=== PATIENT | male | born 1940 | race Caucasian/White ===

== ENCOUNTER 2016-12-01 14:23 | Emergency (ER) | payer MEDICARE, OTHER ==
[2016-12-01] MEDS ORDERED: Rabies Vaccine (RabAvert)* 2.5 UNITS VIAL ONE (14:48)
[2016-12-01 15:04] VITALS: BP 105/80
--- NOTE | 2016-12-01 16:14 | UC ---
Progress - Progress Note Progress Note: The patient came in for a rabies vaccine. He suffered a racoon bite yesterday. His case was discussed with the health department and he was approved for this vaccine. He was not approved for immune globulin. From the start of his coming in, he was very impatient in terms of waiting for his care. To speed up his care, the order was put in for the vaccine, and what he wanted to do after the shot was not stay for a full evaluation for possible antibiotics. He left before I could see him, but after his vaccine.
== END 2016-12-01 15:31 | disposition left against medical advice (07) ==
LOC: UCEAST 14:23
DX: Z29.14 Encounter for prophylactic rabies immune globulin (principal); Z53.21 Procedure and treatment not carried out due to patient leaving prior to being seen by health care provider
CPT/HCPCS: 90675; 96372

== ENCOUNTER 2017-04-27 02:06 | Inpatient (IN) | payer MEDICARE, OTHER ==
[2017-04-27] MEDS ORDERED: NS 0.9% 1000 ML* 1,000 ML IV ONE (02:32)
[2017-04-27] MEDS ORDERED: Ondansetron INJ* 2 MG/ML VIAL IV ONE (02:32)
[2017-04-27 03:03] LABS: Hematocrit 45 % (42-52); Mean Corpuscular HGB Conc 33 g/dl (31-36); Mean Corpuscular Hemoglobin 32 pg (27-31); Mean Corpuscular Volume 96 fL (80-94); Mean Platelet Volume 8 um3 (7.4-10.4); Red Cell Distribution Width 15 % (10.5-15); White Blood Count 16.3 10^3/ul (3.5-10.8)
--- NOTE | 2017-04-27 03:14 | ED ---
Dwayne Willis Rebecca, scribed for Bill Claire MD on 04/27/17 at 0231 . Abdominal Pain/Male - HPI Summary HPI Summary: Pt is a 77 y/o M BIBA who presents to ED c/o epigastric pain. Sx began gradually at approximately 1930 last night and has been constant since onset. Pain was severe at onset, though currently mild ranked 4/10. Additionally c/o N/ V. Sx aggravated by nothing, alleviated by vomiting. Reports he had a tv dinner that did not taste will. Last seen by PCP 10 days ago. - History of Current Complaint Chief Complaint: EDAbdPain Stated Complaint: EPIGASTRIC PAIN Time Seen by Provider: 04/27/17 02:25 Hx Obtained From: Patient Onset/Duration: Gradual Onset, Lasting Hours, Still Present Timing: Constant Severity Initially: Severe Severity Currently: Mild Pain Intensity: 4 Pain Scale Used: 0-10 Numeric Location: Epigastric Radiates: No Aggravating Factor(s): Nothing Alleviating Factor(s): Vomiting Associated Signs And Symptoms: Positive: Nausea, Vomiting - Allergies/Home Medications Allergies/Adverse Reactions: Allergies Allergy/AdvReac Type Severity Reaction Status Date / Time No Known Allergies Allergy Verified 04/27/17 02:19 Home Medications: Home Medications Sulfamethox/Trimethoprim DS* [Bactrim DS 800/160 TAB*] 1 tab PO DAILY 04/27/17 [ History Confirmed 04/27/17] PMH/Surg Hx/FS Hx/Imm Hx Respiratory History: Reports: Hx Chronic Obstructive Pulmonary Disease (COPD) Musculoskeletal History: Reports: Hx Arthritis Neurological History: Reports: Other Neuro Impairments/Disorders - TIAs - Cancer History Cancer Type, Location and Year: colon CA x 25 yrs ago - Surgical History Surgery Procedure, Year, and Place: R inguinal hernia x 2 partial resection of colon. T&A Infectious Disease History: No Infectious Disease History: Denies: Traveled Outside the [place] in Last 30 Days - Family History Known Family History: Positive: Other - No FHx esophageal malignancy - Social History Alcohol Use: Weekly Alcohol Amount: one glass every 10 days Substance Use Type: Reports: None Hx Tobacco Use: Yes Smoking Status (MU): Current Every Day Smoker Type: Cigarettes Length of Time of Smoking/Using Tobacco: 2 PPD Have You Smoked in the Last Year: Yes Review of Systems Negative: Fever Positive: Abdominal Pain - epigastric, Vomiting, Nausea All Other Systems Reviewed And Are Negative: Yes Physical Exam Triage Information Reviewed: Yes Vital Signs On Initial Exam: Initial Vitals BP 134/75 04/27/17 02:13 Vital Signs Reviewed: Yes Appearance: Positive: Pain Distress - mild discomfort, Thin Skin: Positive: Warm Head/Face: Positive: Normal Head/Face Inspection Eyes: Positive: ENEDELIA ENT: Positive: Hearing grossly normal Neck: Positive: Supple Respiratory/Lung Sounds: Positive: Clear to Auscultation, Breath Sounds Present Cardiovascular: Positive: RRR Abdomen Description: Positive: Nontender, Soft, Distended. Negative: Guarding Bowel Sounds: Positive: Hypoactive Musculoskeletal: Positive: Strength/ROM Intact Neurological: Positive: Alert, Oriented to Person Place, Time - [place] Coma Scale Coma Scale Total: 15 Diagnostics - Vital Signs Vital Signs Temp Pulse Resp BP Pulse Ox 04/27/17 02:15 84 11 100 04/27/17 02:14 98.0 F 85 18 134/75 100 04/27/17 02:13 134/75 - Laboratory Lab Results: Lab Results 04/27/17 Range/Units 02:50 WBC 16.3 H (3.5-10.8) 10^3/ul RBC 4.70 (4.0-5.4) 10^6/ul Hgb 15.0 (14.0-18.0) g/dl Hct 45 (42-52) % MCV 96 H (80-94) fL MCH 32 H (27-31) pg MCHC 33 (31-36) g/dl RDW 15 (10.5-15) % Plt Count 282 (150-450) 10^3/ul MPV 8 (7.4-10.4) um3 Neut % (Auto) 90.2 H (38-83) % Lymph % (Auto) 6.1 L (25-47) % [place] % (Auto) 3.1 (1-9) % Eos % (Auto) 0.3 (0-6) % Baso % (Auto) 0.3 (0-2) % Absolute Neuts (auto) 14.7 H (1.5-7.7) 10^3/ul Absolute Lymphs (auto) 1.0 (1.0-4.8) 10^3/ul Absolute Monos (auto) 0.5 (0-0.8) 10^3/ul Absolute Eos (auto) 0 (0-0.6) 10^3/ul Absolute Basos (auto) 0.1 (0-0.2) 10^3/ul Absolute Nucleated RBC 0.01 10^3/ul Nucleated RBC % 0.1 Result Diagrams: 04/27/17 02:50 04/27/17 02:50 Lab Statement: Any lab studies that have been ordered have been reviewed, and results considered in the medical decision making process. Re-Evaluation - Re-Evaluation First Eval Change: Improved - results d/w pt, d/w dr dc Abdominal Pain Fem Course/Dx - Course Assessment/Plan: Pt is a 77 y/o M BIBA who presents to ED c/o constant epigastric pain since 1930 last night. Pain was severe at onset, though currently mild ranked 4/10. Additionally c/o N/V. Sx alleviated by vomiting. Reports he had a tv dinner that did not taste will. Last seen by PCP 10 days ago. WBC of 16.3. Pt will be signed out to Dr. Bashir, pending dispo, awaiting CT Abd/Pel. - Diagnoses Provider Diagnoses: SBO (small bowel obstruction) Discharge - Discharge Plan Condition: Fair Disposition: ADMITTED TO [facility] Discharge Disposition Comment: Pt will be signed out to Dr. Bashir, pending dispo , awaiting CT Abd/Pel. Referrals: Radha Menard MD [Primary Care Provider] - The documentation as recorded by the Dwayne kaye Rebecca accurately reflects the service I personally performed and the decisions made by me, Bill Claire MD.
[2017-04-27 03:18] LABS: Albumin 4.3 g/dL (3.2-5.2); BUN/Creatinine Ratio 8.6 (8-20); Calcium 9.2 mg/dL (8.6-10.3); EGFR African American 58.2 (>60); EGFR Non-African American 45.3 (>60); Globulin 2.8 g/dL (2-4); Magnesium 2.4 mg/dL (1.9-2.7); Potassium 4.5 mmol/L (3.5-5.0); Total Bilirubin 0.7 mg/dL (0.2-1.0); Total Protein 7.1 g/dL (6.4-8.9)
[2017-04-27] MEDS ORDERED: Lidocaine 2% VISCOUS* 15 ML UDC PO ONE (03:21)
[2017-04-27] MEDS ORDERED: Al Hydrox/Mg Hydrox/Simet LIQ* 30 ML UDC PO ONE (03:21)
[2017-04-27] MEDS ORDERED: Iodixanol* (CONTRAST) 320 MG/ML 100 ML SDV IV ONE (06:06)
--- NOTE | 2017-04-27 07:59 | RAD ---
INDICATION: Abdominal pain. COMPARISON: Comparison is made with a prior CT angiogram of the abdomen from June 24, 2013. TECHNIQUE: A CT scan of the abdomen and pelvis was performed with intravenous and oral contrast following intravenous injection of 72 ml of Visipaque 320 nonionic contrast. Contiguous axial sections were obtained from the lung bases through the symphysis pubis. Images were reconstructed in the coronal and sagittal planes. FINDINGS: The lung bases are clear. No pleural effusion is present. The liver and spleen are normal in size. There is a tiny fluid density structure present within the left hepatic lobe measuring 3 mm in size suggestive of a small cyst although too small to characterize by CT. No other focal abnormalities are seen. No calcified gallstones are noted. No intra or extrahepatic ductal distention is seen. There are a few scattered pancreatic calcifications suggestive of chronic pancreatitis. No ductal distention is seen. There is a tiny cystic lesion in the tail of the pancreas measuring 5 mm in size which is unchanged from the prior study from 2012. The kidneys and adrenal glands are normal in size. No hydronephrosis is seen. There are couple small subcentimeter left renal cysts. The prostate gland is mildly enlarged. The aorta is normal in caliber with moderate calcific plaque present. No significant enlarged retroperitoneal lymph nodes are seen. The stomach is mildly distended. There is moderate diffuse distention of the small bowel. A localized transition point is not identified. Air is seen within the colon which is nondistended. The appendix is not identified. There is a surgical anastomosis at the rectosigmoid junction. No abscess or focal fluid collection is seen. No free intraperitoneal air or fluid is seen. No significant focal osseous abnormality is seen. IMPRESSION: 1. MODERATE GRADE DISTAL SMALL BOWEL OBSTRUCTION. RECOMMEND FOLLOW-UP. 2. FINDINGS CONSISTENT WITH CHRONIC PANCREATITIS.
[2017-04-27] MEDS ORDERED: Ondansetron INJ* 2 MG/ML VIAL IV PRN (08:04)
[2017-04-27] MEDS: NS 0.9% 1000 ML* 1,000 ML IV SCH ×2 (09:13→20:04)
[2017-04-27] MEDS: Pantoprazole IV* 40 MG IV SCH (09:16)
[2017-04-27] MEDS: cefTRIAXone VIAL(*) 1,000 MG in NS 0.9% 50 ML* 50 ML IVPB SCH (09:17)
[2017-04-27] MEDS: Nicotine PATCH 21 MG/24 HR* PATCH TRANSDERM SCH (09:19)
[2017-04-27] MEDS: metroNIDAZOLE IV 500 MG/100ML* 500 MG/100 ML BAG IVPB SCH ×2 (10:36→17:23)
[2017-04-27 11:53] LABS: Urine Bacteria Absent (Absent); Urine Bilirubin Negative (Negative); Urine Glucose Negative (Negative); Urine Nitrite Negative (Negative)
[2017-04-27] MEDS: Heparin VIAL(*) 5000 UNITS/ML VIAL (FIVE THOUSAND) SUBCUT SCH ×2 (13:28→21:54)
[2017-04-27] MEDS ORDERED: Lidocaine 2% VISCOUS* 15 ML UDC SWISH SPIT ONE (15:55)
[2017-04-27] MEDS ORDERED: Benzocaine/Butamben/Tetracain* SPRAY TOPICAL PRN (18:34)
--- NOTE | 2017-04-27 19:11 | HP ---
CC: Dr. Ayon; Dr. Menard; Dr. Connors * HISTORY AND PHYSICAL: DATE OF ADMISSION: 04/27/17 CHIEF COMPLAINT: Abdominal pain. HISTORY OF PRESENT ILLNESS: Mr. Cortez is a 77-year-old male with history of BPH; colon cancer, status post resection in the past, who presents to the hospital complaining of nausea, vomiting, and abdominal pain that started yesterday. The patient stated that he had been constipated for 3 to 4 days. Yesterday, he had "TV dinner." He stated that it did not taste good as the food was "bad." He said that he had most of it. In the night, he developed severe abdominal pain with nausea and vomiting. He stated that he had "more pain and vomiting." He has not had passed any flatus for the past 24 hours. The evaluation in the ED revealed leukocytosis and a CT of the abdomen did show small bowel obstruction, most likely due to adhesions. The patient is going to be admitted to the surgical floor with the diagnosis of small bowel obstruction. Surgery consultants will be managing the obstruction. PAST MEDICAL HISTORY: 1. History of colon cancer, status post resection over 30 years ago. 2. History of PTSD. 3. Arthritis. 4. History of hernia repair x2. 5. History of BPH, under the care of Dr. Connors with recent diagnosis of UTI/ prostatitis. MEDICATIONS: Bactrim DS 1 tablet p.o. b.i.d. started 2 days ago for UTI/ prostatitis by Dr. Connors. ALLERGIES: No known drug allergies. FAMILY HISTORY: Positive for mother who of "throat cancer" at the age of 84 and father who at the age of 82 secondary to pancreatic cancer. SOCIAL HISTORY: The patient has a history of smoking 2 packs per day and he started when he was 23 years old. He denies any alcohol or drug use. 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 His surrogate decision maker is his friend, Clark Smith. REVIEW OF SYSTEMS: Please see history of present illness. All the remaining 14 systems were reviewed with the patient and were otherwise negative. PHYSICAL EXAMINATION GENERAL: The patient is a very pleasant 77-year-old male, who is in no acute distress. Alert, awake, and oriented x3. VITAL SIGNS: Blood pressure 125/70, heart rate of 76 and regular, respiratory rate 14, oxygen saturation 98% on room air, temperature 98.0. HEENT: Head: Atraumatic, normocephalic. Eyes: Pupils equal, round, and reactive to light and accommodation. Oropharynx clear. Mucosa moist. NECK: Supple. No JVD, no bruits bilaterally. RESPIRATORY: Clear to auscultation bilaterally. CARDIOVASCULAR: Regular rate and rhythm. No murmur. ABDOMEN: Soft, diffusely tender with voluntary guarding. No rebound. Bowel sounds are hypoactive throughout. EXTREMITIES: There is no edema. Pulses +2 bilaterally. There is no clubbing or cyanosis. NEUROLOGIC: Speech clear. Cranial nerves II through XII grossly intact. Motor strength is 5/5 bilaterally. PSYCHIATRIC: Oriented x3 with no evidence of anxiety or depression. SKIN: On evaluation of the skin, no ecchymotic areas or rashes noted. DIAGNOSTIC STUDIES/LAB DATA: Shows a white blood cell count of 16.3, hemoglobin of 15.0, hematocrit of 45, and platelets of 282. Sodium was 133, potassium 4.5, chloride 104, carbon dioxide 23, BUN 13, creatinine 1.51. Liver function tests were unremarkable. Lipase was 19. CT abdomen, pelvis, and impression: "Moderate grade distal small bowel obstruction. Recommend followup. Findings consistent with "chronic pancreatitis." ASSESSMENT AND PLAN: 1. Small bowel obstruction in a patient with history of colon cancer most, likely due to adhesions. The patient is going to be placed on n.p.o. diet, intravenous fluids for support. The patient is going to be placed on Protonix intravenous for GI prophylaxis while n.p.o. Dr. Ayon was notified by the ED doctor and requested Medicine to admit this patient. Dr. Ayon will follow this patient in consultation. For the time being, the patient appears comfortable and is not currently vomiting. I will defer to Surgery if the patient needs an NG tube at this point. 2. In regards to the patient's recent history urinary tract infection and prostatitis, Bactrim is going to be held. I will place the patient on ceftriaxone. There are no urine cultures that are available to refer to at this point. I will obtain urinalysis. Due to leukocytosis and the patient's bowel obstruction, I will also place him on metronidazole intravenously in addition to ceftriaxone to cover anaerobes. 3. For DVT prophylaxis, the patient is going to be placed on heparin subcutaneously. 4. In regards to the patient's history of smoking, the patient is aware and counseled in regards to smoking cessation. He is going to be placed on nicotine patch. 5. The patient's code status is full. TIME SPENT: Approximately 70 minutes was spent on admission of this patient, more than half the time was spent [id number] with the patient doing the interview and physical exam. [id number]/[facility] #: [id number] PADDY
--- NOTE | 2017-04-27 22:39 | CONS ---
CC: Radha Menard MD* CONSULTATION REPORT: DATE OF CONSULT: 04/27/17 REASON FOR CONSULTATION: Small bowel obstruction. HISTORY OF PRESENT ILLNESS: This is a 77-year-old gentleman with history of prior right hemicolectomy for colon cancer in 1992, who presented to the [facility] Emergency Room with a history of abdominal pain, which began at 7 :30 on 04/26/17, and subsequently he has had episodes of nausea and small amounts of emesis. He reports his symptoms began after he ate a TV dinner with meatloaf that he felt did not taste particularly good. He did not finish the meal; however, shortly after he started with his symptoms. Prior to that he reports he was seen by his urologist for followup of elevated PSA, and had been found to have an incidental urinary tract infection. That was on Saturday and he had been prescribed Bactrim for that. He reports that he has not had any similar episodes of abdominal pain in the past. He has had a colonoscopy within in the past 1 year, which was negative for any cancer or masses. He has not passed flatus for 2 days. He denies fevers or chills. PAST MEDICAL HISTORY: Significant for colon cancer, COPD, PTSD, hiatal hernia, and arthritis. PAST SURGICAL HISTORY: Right colectomy in 1992 and right inguinal hernia repairs, 1961 and 2010. MEDICATIONS: He was only taking Bactrim at home. ALLERGIES: None known. FAMILY HISTORY: Reviewed and was noncontributory. SOCIAL HISTORY: He is an active smoker and reports occasional alcohol use and no drug use. REVIEW OF SYSTEMS: A 14-point review of systems was completed and was significant for the above-mentioned issues, otherwise negative. PHYSICAL EXAMINATION: Vital Signs: Temperature is 98.6, pulse 84, respirations 16, O2 sat 100% on room air, blood pressure 136/82. General: He is, in general, a thin 77-year-old gentleman, in no acute distress. HEENT: Head is normocephalic and atraumatic. Sclerae are anicteric. Mucous membranes are moist. There is otorhinorrhea. His dentition is poor. His neck is symmetrical, with midline trachea. No palpable lymphadenopathy. Lungs are clear to auscultation bilaterally. Heart: Regular S1, S2. Abdomen has a well -healed transverse scar on the right upper quadrant, is distended, with bowel sounds present with high- pitched bowel sounds, and some rushes. His abdomen is nontender and there were no palpable masses or hernias. His extremities are warm. LABORATORY DATA: Shows a WBC of 16.3, his hemoglobin and hematocrit were 15 and 45, and platelet count was 282, with no shift. Chemistries were remarkable for creatinine of 1.51 and a glucose of 152. Liver functions were normal. Albumin was normal as was lipase. His urinalysis revealed 2+ rbc's, absent wbc' s. No bacteria. His CT scan images from 04/27/17 were reviewed and findings were consistent with small bowel obstructions. IMPRESSION: A 77-year-old gentleman with history of prior right colon cancer, status post resection many years ago, now presenting with first episode of small bowel obstruction likely secondary to adhesions from prior surgery. He does not have an acute abdomen, does not require any urgent surgical intervention. PLAN/RECOMMENDATION: I discussed the findings with the patient. I explained nonsurgical management would include NG-tube decompression, IV hydration, and serial radiographic evaluation. The patient was explained that should his condition worsen or not improve, he may then subsequently require surgical intervention. [facility] will follow with you. [id number]/[facility] #: [id number] PADDY
[2017-04-28] MEDS: metroNIDAZOLE IV 500 MG/100ML* 500 MG/100 ML BAG IVPB SCH ×3 (01:36→17:16)
[2017-04-28] MEDS: NS 0.9% 1000 ML* 1,000 ML IV SCH ×2 (05:06→15:40)
[2017-04-28] MEDS: Heparin VIAL(*) 5000 UNITS/ML VIAL (FIVE THOUSAND) SUBCUT SCH ×3 (06:31→22:10)
[2017-04-28 06:36] LABS: Hematocrit 38 % (42-52); Hemoglobin 12.7 g/dl (14.0-18.0); Mean Corpuscular HGB Conc 33 g/dl (31-36); Mean Corpuscular Hemoglobin 32 pg (27-31); Mean Corpuscular Volume 96 fL (80-94); Mean Platelet Volume 9 um3 (7.4-10.4); Red Blood Count 3.97 10^6/ul (4.0-5.4); Red Cell Distribution Width 14 % (10.5-15); White Blood Count 12.4 10^3/ul (3.5-10.8)
[2017-04-28 06:48] LABS: BUN/Creatinine Ratio 16.5 (8-20); Calcium 7.7 mg/dL (8.6-10.3); EGFR African American 90.5 (>60); EGFR Non-African American 70.4 (>60); Potassium 4.2 mmol/L (3.5-5.0)
--- NOTE | 2017-04-28 08:02 | PN ---
Subjective Date of Service: 04/28/17 Interval History: Patient seen this morning. Says he is feeling significantly better. No N/V overnight. Had "muddy" BM this morning. Asking for NG tube to be removed. Family History: Unchanged from Admission Social History: Unchanged from Admission Past Medical History: Unchanged from Admission Objective Active Medications: Benzocaine/Butamben/Tetracaine HCl (Cetacaine [place]*) 1 spray TOPICAL Q2H PRN Heparin Sodium (Porcine) (Heparin Vial(*)) 5,000 units SUBCUT Q8HR ANTHONY Sodium Chloride (Ns 0.9% 1000 Ml*) 1,000 mls @ 125 mls/hr IV PER RATE ANTHONY Ceftriaxone Sodium 1,000 mg/ (Sodium Chloride) 50 mls @ 200 mls/hr IVPB Q24H ANTHONY Metronidazole/Sodium Chloride (Flagyl 500 Mg Ivpb*) 500 mg in 100 mls @ 100 mls /hr IVPB Q8H ANTHONY Nicotine (Nicotine Patch 21 Mg/24 Hr*) 1 patch TRANSDERM DAILY ANTHONY Ondansetron HCl (Zofran Inj*) 4 mg IV Q6H PRN Pantoprazole Sodium (Protonix Iv*) 40 mg IV DAILY ANTHONY Vital Signs 04/27/17 04/27/17 04/27/17 08:00 08:32 08:54 Temperature 98.1 F Pulse Rate 76 87 Respiratory 18 20 Rate Blood Pressure 136/77 (mmHg) O2 Sat by Pulse 98 99 Oximetry 04/27/17 04/27/17 04/28/17 20:00 23:24 03:31 Temperature 99.5 F 99.2 F Pulse Rate 80 72 Respiratory 16 16 16 Rate Blood Pressure 114/62 108/61 (mmHg) O2 Sat by Pulse 98 98 Oximetry Oxygen Devices in Use Now: None Appearance: Elderly, M, laying in bed in NAD Eyes: No Scleral Icterus Ears/Nose/Mouth/Throat: - - Dry MM Neck: NL Appearance and Movements; NL JVP Respiratory: Symmetrical Chest Expansion and Respiratory Effort, Clear to Auscultation Cardiovascular: NL Sounds; No Murmurs; No JVD, RRR Abdominal: - - Soft, non-distended, mild TTP in LLQ, BS+, do not appreciate tinkling sounds Lymphatic: No Cervical Adenopathy Extremities: No Edema Skin: No Rash or Ulcers Neurological: Alert and Oriented x 3 Lines/Tubes/Other Access: Clean, Dry and Intact Naso-enteral Tube Result Diagrams: 04/28/17 06:03 04/28/17 06:03 Assess/Plan/Problems-Billing Assessment: SBO in a 77 yo M with hx of colon ca s/p resection, BPH, recent UTI - Patient Problems (1) SBO (small bowel obstruction) Current Visit: Yes Comment: Appreciate surgery assistance. Continue NPO, NGT. Repeat AXR this AM pending read. Patient reports having BM this morning. (2) XOCHILT (acute kidney injury) Current Visit: Yes Comment: 2/2 pre-renal vs bactrim. Resolved. (3) UTI (urinary tract infection) Current Visit: Yes Comment: Continue IV CTX for UTI (4) DVT prophylaxis Current Visit: Yes Comment: HSQ Status and Disposition: Inpatient for SBO
--- NOTE | 2017-04-28 08:19 | RAD ---
INDICATION: Small bowel obstruction. COMPARISON: Comparison is made with a prior CT of the abdomen and pelvis from April 27, 2017. TECHNIQUE: Supine and upright views of the abdomen were obtained. FINDINGS: The distal portion of a nasogastric tube is seen in the left upper quadrant. There is moderate distention of several proximal and mid small bowel loops. Air is seen within the colon which is nondistended. No free intraperitoneal air is seen. Contrast is noted in the urinary bladder from the CT study from one day earlier. IMPRESSION: PARTIAL SMALL BOWEL OBSTRUCTION, UNCHANGED.
[2017-04-28] MEDS: Pantoprazole IV* 40 MG IV SCH (09:15)
[2017-04-28] MEDS: cefTRIAXone VIAL(*) 1,000 MG in NS 0.9% 50 ML* 50 ML IVPB SCH (09:15)
[2017-04-28] MEDS: Nicotine PATCH 21 MG/24 HR* PATCH TRANSDERM SCH (09:18)
--- NOTE | 2017-04-28 14:13 | PN ---
Progress Note - Progress Note Date of Service: 04/28/17 SOAP: Subjective: NGT was placed yesterday. He self d/c'd today. He has had multiple BMs and some flatus. He states the pain is gone and he is thirsty. Objective: Vital Signs Temp 98.0 F 04/28/17 08:03 Pulse 64 04/28/17 08:03 Resp 18 04/28/17 08:03 BP 110/62 04/28/17 08:03 Pulse Ox 99 04/28/17 08:03 NAD Abd: softly distended; +BS; mild tympany; non-tender. Intake & Output 04/27/17 04/28/17 04/28/17 18:59 06:59 18:59 Intake Total 821 1366 1006 Output Total 150 650 0 Balance 202 755 8563 Weight 128 lb Intake: IV Fluids 821 1256 NS (0.9%) 606 1256 flagyl 160 zofran 55 IVPB 110 1006 NS (0.9%) 856 flagyl 110 100 zofran 50 Oral 0 0 Output: NG Tube Drainage Amount 400 Urine 100 250 0 Emesis 50 Other: Estimated Void Small # Bowel Movements 1 0 Estimated Stool Amount Small # Voids 1 Laboratory Results - last 24 hr 04/28/17 04/28/17 06:03 06:03 WBC 12.4 H RBC 3.97 L Hgb 12.7 L Hct 38 L MCV 96 H MCH 32 H MCHC 33 RDW 14 Plt Count 252 MPV 9 Neut % (Auto) 80.6 Lymph % (Auto) 10.8 L [place]ess % (Auto) 7.7 Eos % (Auto) 0.7 Baso % (Auto) 0.2 Absolute Neuts (auto) 10.0 H Absolute Lymphs (auto) 1.3 Absolute Monos (auto) 0.9 H Absolute Eos (auto) 0.1 Absolute Basos (auto) 0 Absolute Nucleated RBC 0.01 Nucleated RBC % 0.1 Sodium 137 Potassium 4.2 Chloride 111 Carbon Dioxide 23 Anion Gap 3 BUN 17 Creatinine 1.03 Est GFR ( Amer) 90.5 Est GFR (Non-Af Amer) 70.4 BUN/Creatinine Ratio 16.5 Glucose 101 H Calcium 7.7 L AXR: Air in colon. Dilated SB loops. Assessment: Resolving SBO. Plan: Clears today. Advance in AM if tolerating and could likely d/c tomorrow.
[2017-04-29] MEDS: NS 0.9% 1000 ML* 1,000 ML IV SCH (01:40)
[2017-04-29] MEDS: metroNIDAZOLE IV 500 MG/100ML* 500 MG/100 ML BAG IVPB SCH ×2 (01:41→09:40)
[2017-04-29] MEDS: Heparin VIAL(*) 5000 UNITS/ML VIAL (FIVE THOUSAND) SUBCUT SCH ×2 (06:03→15:12)
[2017-04-29 06:23] LABS: Hematocrit 39 % (42-52); Hemoglobin 12.8 g/dl (14.0-18.0); Mean Corpuscular HGB Conc 33 g/dl (31-36); Mean Corpuscular Hemoglobin 32 pg (27-31); Mean Corpuscular Volume 97 fL (80-94); Mean Platelet Volume 8 um3 (7.4-10.4); Red Cell Distribution Width 15 % (10.5-15); White Blood Count 8.8 10^3/ul (3.5-10.8)
[2017-04-29 06:37] LABS: BUN/Creatinine Ratio 11.9 (8-20); Calcium 7.6 mg/dL (8.6-10.3); EGFR African American 92.6 (>60); Potassium 3.9 mmol/L (3.5-5.0)
--- NOTE | 2017-04-29 07:37 | PN ---
Subjective Date of Service: 04/29/17 Interval History: Patient seen this morning. Says he is tolerating the clear liquids with no problems. He has been having diarrhea and at times it has been difficult to get to the toilet on time and he has had "an accident". Noted corn in his stool which was the last meal he had. Occasional "gas pain" but nothing like before, no further N/V Family History: Unchanged from Admission Social History: Unchanged from Admission Past Medical History: Unchanged from Admission Objective Active Medications: Benzocaine/Butamben/Tetracaine HCl (Cetacaine [place]*) 1 spray TOPICAL Q2H PRN PRN Reason: SORE THROAT Last Admin: 04/27/17 18:46 Dose: 1 spray Heparin Sodium (Porcine) (Heparin Vial(*)) 5,000 units SUBCUT Q8HR [facility] Last Admin: 04/29/17 06:03 Dose: 5,000 units Ceftriaxone Sodium 1,000 mg/ (Sodium Chloride) 50 mls @ 200 mls/hr IVPB Q24H [facility] Last Admin: 04/28/17 09:15 Dose: 200 mls/hr Metronidazole/Sodium Chloride (Flagyl 500 Mg Ivpb*) 500 mg in 100 mls @ 100 mls /hr IVPB Q8H [facility] Last Admin: 04/29/17 01:41 Dose: 100 mls/hr Nicotine (Nicotine Patch 21 Mg/24 Hr*) 1 patch TRANSDERM DAILY [facility] Last Admin: 04/28/17 09:18 Dose: Not Given Ondansetron HCl (Zofran Inj*) 4 mg IV Q6H PRN PRN Reason: NAUSEA Last Admin: 04/27/17 13:26 Dose: 4 mg Pantoprazole Sodium (Protonix Iv*) 40 mg IV DAILY [facility] Last Admin: 04/28/17 09:15 Dose: 40 mg Vital Signs 04/28/17 04/28/17 04/28/17 08:00 08:03 11:47 Temperature 98.0 F 98.2 F Pulse Rate 64 69 Respiratory 18 18 18 Rate Blood Pressure 110/62 95/61 (mmHg) O2 Sat by Pulse 99 99 Oximetry 04/28/17 04/28/17 04/28/17 15:42 19:45 20:11 Temperature 100.8 F 99.3 F Pulse Rate 78 67 Respiratory 18 24 20 Rate Blood Pressure 118/63 109/59 (mmHg) O2 Sat by Pulse 100 98 Oximetry 04/28/17 04/28/17 04/29/17 20:14 23:17 03:19 Temperature 98.3 F 98.1 F Pulse Rate 71 59 Respiratory 20 16 16 Rate Blood Pressure 109/78 112/63 (mmHg) O2 Sat by Pulse 99 99 Oximetry Oxygen Devices in Use Now: None Appearance: Elderly, M, laying in bed in NAD Eyes: No Scleral Icterus Ears/Nose/Mouth/Throat: Mucous Membranes Moist Neck: NL Appearance and Movements; NL JVP Respiratory: Symmetrical Chest Expansion and Respiratory Effort, Clear to Auscultation Cardiovascular: NL Sounds; No Murmurs; No JVD, RRR Abdominal: - - Soft, non-distended, some mild TTP in RLQ, BS+ Lymphatic: No Cervical Adenopathy Extremities: No Edema Skin: No Rash or Ulcers Neurological: Alert and Oriented x 3 Result Diagrams: 04/29/17 05:45 04/29/17 05:45 Assess/Plan/Problems-Billing Assessment: SBO in a 77 yo M with hx of colon ca s/p resection, BPH, recent UTI - Patient Problems (1) SBO (small bowel obstruction) Current Visit: Yes Comment: Appreciate surgery assistance. No further N/V, has been having diarrhea. Advance to full liquids this morning. (2) XOCHILT (acute kidney injury) Current Visit: Yes Comment: 2/2 pre-renal vs bactrim. Resolved. (3) UTI (urinary tract infection) Current Visit: Yes Comment: Continue IV CTX for UTI (4) DVT prophylaxis Current Visit: Yes Comment: HSQ Status and Disposition: Inpatient for SBO, potential discharge later today
[2017-04-29] MEDS: Nicotine PATCH 21 MG/24 HR* PATCH TRANSDERM SCH (08:43)
[2017-04-29] MEDS: Pantoprazole IV* 40 MG IV SCH (08:43)
[2017-04-29] MEDS: cefTRIAXone VIAL(*) 1,000 MG in NS 0.9% 50 ML* 50 ML IVPB SCH (08:45)
--- NOTE | 2017-04-29 10:24 | SURGPN ---
Subjective - Introduction -: Doing very well, eating ice cream. Denies nausea, vomiting or abdominal pain. Tolerating full liquids. Multiple loose BMs yesterday and this AM. Has no complaints. - Medications -: Active Medications Generic Name Dose Route Start Last Admin Trade Name Freq PRN Reason Stop Dose Admin Benzocaine/Butamben/Tetracaine HCl 1 spray 04/27/17 18:34 04/27/17 18:46 Cetacaine [place]* TOPICAL 1 spray Q2H PRN Administration SORE THROAT Heparin Sodium (Porcine) 5,000 units 04/27/17 14:00 04/29/17 06:03 Heparin Vial(*) SUBCUT 5,000 units Q8HR [facility] Administration Ceftriaxone Sodium 1,000 mg/ 50 mls @ 200 mls/hr 04/27/17 09:00 04/29/17 08: 45 Sodium Chloride IVPB 200 mls/hr Q24H AN[facility]Y Administration Metronidazole/Sodium Chloride 500 mg in 100 mls @ 100 mls/hr 04/27/17 09:30 04/29/17 09:40 Flagyl 500 Mg Ivpb* IVPB 100 mls/hr Q8H ANTHONY Administration Nicotine 1 patch 04/27/17 09:00 04/29/17 08:43 Nicotine Patch 21 Mg/24 Hr* TRANSDERM Not Given DAILY ANTHONY Ondansetron HCl 4 mg 04/27/17 08:04 04/27/17 13:26 Zofran Inj* IV 4 mg Q6H PRN Administration NAUSEA Pantoprazole Sodium 40 mg 04/27/17 09:00 04/29/17 08:43 Protonix Iv* IV 40 mg DAILY ANTHONY Administration Objective - Objective -: Awake and alert, comfortable in bed, in NAD. - Intake and Output -: Intake & Output 04/27/17 04/28/17 04/29/17 04/30/17 06:59 06:59 06:59 06:59 Intake Total 2187 3355 320 Output Total 800 200 Balance 1387 3155 320 Weight 128 lb Intake: IV Fluids 2077 749 NS (0.9%) 1862 749 flagyl 160 zofran 55 IVPB 110 1886 NS (0.9%) 1636 flagyl 110 200 zofran 50 Oral 0 720 320 Output: NG Tube Drainage Amount 400 Urine 350 200 Emesis 50 Other: Estimated Void Small Large Date of Last Bowel 04/29/17 Movement # Bowel Movements 1 1 Estimated Stool Amount Small Medium # Voids 1 5 Surgical Physical Exam - Comments -: VSS, afebrile Lungs CTA bilat. Heart RRR, no murmurs. Abdomen soft, NT and ND. BS normoactive in all quadrants. Ext. without edema Labs noted Assessment and Plan - Assessment -: A 77 y/o male with resolved SBO, doing well. - Plan Additional Comments: Full liquid diet for now. Advised to slowly and gradually advance diet to regular as tolerated in the next few days at home. Patient can follow up with surgical associates in 2 weeks after discharge. No surgical indications at this time. Sign off patient. Thank you for the consultation.
[2017-04-29 11:36] VITALS: BP 99/55
--- NOTE | 2017-04-30 03:09 | DS ---
CC: Dr. Radha Menard * DISCHARGE SUMMARY: DATE OF ADMISSION: 04/27/17 DATE OF DISCHARGE: 04/29/17 PRIMARY CARE PHYSICIAN: Dr. Radha Menard. PRINCIPAL DISCHARGE DIAGNOSIS: Small bowel obstruction. SECONDARY DIAGNOSES: 1. Urinary tract infection. 2. History of colon cancer, status post resection. 3. Post traumatic stress disorder. 4. Arthritis. 5. Benign prostatic hypertrophy. STUDIES DURING HOSPITALIZATION: CT of the abdomen and pelvis, impression: Moderate grade distal small bowel obstruction, recommend followup. Findings consistent with chronic pancreatitis. Abdominal x-ray, impression: Partial small bowel obstruction, unchanged. DISCHARGE MEDICATIONS REGIME: Bactrim double strength 1 tablet by mouth 3 times daily. CONSULTANTS DURING HOSPITALIZATION: Dr. Rl Bhatia, Surgery. HISTORY OF PRESENT ILLNESS AND HOSPITAL SUMMARY: Please see the full history and physical by Dr. Kalyn Meade for full details. Mr. Cortez is a 77- year-old male with a past medical history as above, who presented to the hospital with abdominal pain, nausea, and vomiting. Imaging revealed evidence of bowel obstruction most likely due to adhesions from his previous surgery. The patient had an NG tube placed and was made n.p.o. Surgery was consulted. Dr. Bhatia evaluated the patient and agreed with conservative management at this time. Over the following days, patient's NG tube was removed. His symptoms improved. He tolerated clear liquids and was advanced to full liquids on the day of discharge. He was seen by Surgery and was felt safe to discharge home with continued slow advancement of the diet as an outpatient. The patient was diagnosed with a urinary tract infection as an outpatient. While hospitalized, was continued on IV ceftriaxone, Flagyl was added due to concern for possible intraabdominal infection, but there is no need to continue this. The patient can restart his home Bactrim to complete the course for his urinary tract infection minus the 2 days he was in the hospital. The patient will follow up with Surgery as an outpatient as well as with his PCP. TIME SPENT: Total time spent on this discharge 45 minutes. This is a summary of the hospitalization, please see the full medical record for further details. [id number]/CPS #: [id number] MTDD
== END 2017-04-29 16:35 | disposition home or self-care (01) | DRG 389 ==
LOC: ED 02:06 → SSU 07:48
PROVIDERS: ADMIT Internal Medicine; ATTEND Hospitalist
PROC: 0D9670Z Drainage of Stomach with Drainage Device, Via Natural or Artificial Opening (ICD-10-PCS; principal; 2017-04-27)
DX: K56.5 Intestinal adhesions [bands] with obstruction (postinfection) (principal); N17.9 Acute kidney failure, unspecified; J44.9 Chronic obstructive pulmonary disease, unspecified; N39.0 Urinary tract infection, site not specified; K86.1 Other chronic pancreatitis; M19.90 Unspecified osteoarthritis, unspecified site; Z86.73 Personal history of transient ischemic attack (TIA), and cerebral infarction without residual deficits; Z85.038 Personal history of other malignant neoplasm of large intestine; N40.0 Benign prostatic hyperplasia without lower urinary tract symptoms; F43.10 Post-traumatic stress disorder, unspecified; Z80.8 Family history of malignant neoplasm of other organs or systems; Z80.0 Family history of malignant neoplasm of digestive organs; F17.210 Nicotine dependence, cigarettes, uncomplicated; Z90.49 Acquired absence of other specified parts of digestive tract; Z72.89 Other problems related to lifestyle
CPT/HCPCS: 36415; 74020; 74177; 80048; 80053; 81003; 81015; 83690; 83735; 85025; A9270-GY; J0696; J1644; J2405; Q9967

== ENCOUNTER 2022-10-20 22:19 | Observation (INO) ==
[2022-10-20 23:01] LABS: ABS Eosinophils 0.1 10^3/ul (0-0.6); ABS Lymphocytes 1.1 10^3/ul (1.0-4.8); ABS Neutrophils 7.7 10^3/ul (1.5-7.7); Hematocrit 28 % (42-52); Hemoglobin 9.5 g/dL (14.0-18.0); Lymphocyte % 10.8 %; Mean Corpuscular HGB Conc 34 g/dL (31-36); Mean Corpuscular Hemoglobin 34 pg (27-31); Mean Corpuscular Volume 100 fL (80-94); Mean Platelet Volume 7.3 fL (7.4-10.4); Nucleated Red Blood Cells % 0.1; Platelet Count 502 10^3/uL (150-450); Red Blood Count 2.79 10^6 /uL (4.18-5.48); Red Cell Distribution Width 13 % (10-15); White Blood Count 9.9 10^3/uL (3.5-10.8)
[2022-10-20 23:11] LABS: INR 1.22 (0.88-1.18)
[2022-10-20 23:38] LABS: Albumin 4.2 g/dL (3.2-5.2); Albumin/Globulin Ratio 1.9 (1-3); Calcium 9.1 mg/dL (8.6-10.3); Globulin 2.2 g/dL (2-4); Magnesium 2.3 mg/dL (1.9-2.7); Phosphorus 2.4 mg/dL (2.5-5.0); Potassium 4.7 mmol/L (3.5-5.0); Total Bilirubin 0.5 mg/dL (0.2-1.0); Total Protein 6.4 g/dL (6.4-8.9); eGFR CKD-EPI 54.5 (>60)
[2022-10-21 00:51] LABS: High Sensitivity Troponin 1 Hr 6 pg/mL (<20)
[2022-10-21 01:33] LABS: Urine Appearance Clear; Urine Bilirubin Negative (Negative); Urine Blood Negative (Negative); Urine Color Yellow; Urine Glucose Negative (Negative); Urine Ketones Trace (Negative); Urine Nitrite Negative (Negative); Urine Protein Negative (Negative); Urine Specific Gravity 1.019 (1.002-1.030); Urine Urobilinogen Negative (Negative)
[2022-10-21] MEDS ORDERED: Ondansetron 4 mg VIAL 2 MG/ML 2 ml VIAL IV PRN (02:15)
[2022-10-21 03:01] LABS: Folate 13.75 ng/mL (5.90-24.80)
[2022-10-21] MEDS: Lactated Ringers 1000 ml BAG 1,000 ML IV SCH ×2 (04:46→17:55)
[2022-10-21 06:46] LABS: ABS Basophils 0.1 10^3/ul (0-0.2); ABS Eosinophils 0.1 10^3/ul (0-0.6); ABS Lymphocytes 1.1 10^3/ul (1.0-4.8); ABS Monocytes 1.1 10^3/ul (0-0.8); ABS Neutrophils 7.7 10^3/ul (1.5-7.7); Eosinophil % 0.9 %; Hematocrit 27 % (42-52); Hemoglobin 9.4 g/dL (14.0-18.0); Lymphocyte % 10.9 %; Mean Corpuscular HGB Conc 35 g/dL (31-36); Mean Corpuscular Hemoglobin 35 pg (27-31); Mean Corpuscular Volume 100 fL (80-94); Mean Platelet Volume 7.5 fL (7.4-10.4); Platelet Count 482 10^3/uL (150-450); Red Blood Count 2.72 10^6 /uL (4.18-5.48); Red Cell Distribution Width 13 % (10-15)
[2022-10-21 07:35] LABS: Albumin/Globulin Ratio 1.8 (1-3); Globulin 2.2 g/dL (2-4); Potassium 4.3 mmol/L (3.5-5.0); Total Bilirubin 0.7 mg/dL (0.2-1.0); Total Protein 6.2 g/dL (6.4-8.9); eGFR CKD-EPI 71.8 (>60)
[2022-10-21] MEDS: CMC:FLUTICAS/UMECLI/VILANT 100-62.5-25 MDI (NF) INH SCH (07:48)
[2022-10-21] MEDS ORDERED: Magnesium Hydroxide LIQ 30 ML UDC PO PRN (08:49)
[2022-10-21] MEDS ORDERED: Polyethylene Glycol 3350 17 GM PACKET PO PRN (08:49)
[2022-10-21] MEDS ORDERED: Senna TAB 8.6 mg TAB PO PRN (08:49)
[2022-10-21] MEDS: Magnesium Hydroxide LIQ 30 ML UDC PO SCH ×2 (13:35→22:19)
[2022-10-21] MEDS: Enoxaparin 40 MG/0.4 ML SYR SUBCUT SCH (13:36)
[2022-10-21] MEDS: Lidocaine PATCH 5% PATCH TRANSDERM SCH (21:33)
[2022-10-22] MEDS: Lactated Ringers 1000 ml BAG 1,000 ML IV SCH ×3 (02:14→22:41)
[2022-10-22 06:40] LABS: ABS Basophils 0.1 10^3/ul (0-0.2); ABS Eosinophils 0.1 10^3/ul (0-0.6); ABS Lymphocytes 0.8 10^3/ul (1.0-4.8); ABS Monocytes 0.8 10^3/ul (0-0.8); ABS Neutrophils 4.9 10^3/ul (1.5-7.7); Eosinophil % 1.7 %; Hematocrit 27 % (42-52); Hemoglobin 9.3 g/dL (14.0-18.0); Lymphocyte % 11.9 %; Mean Corpuscular HGB Conc 35 g/dL (31-36); Mean Corpuscular Hemoglobin 35 pg (27-31); Mean Corpuscular Volume 100 fL (80-94); Mean Platelet Volume 7.1 fL (7.4-10.4); Platelet Count 453 10^3/uL (150-450); Red Blood Count 2.67 10^6 /uL (4.18-5.48); Red Cell Distribution Width 13 % (10-15); White Blood Count 6.6 10^3/uL (3.5-10.8)
[2022-10-22 07:16] LABS: Calcium 8.7 mg/dL (8.6-10.3); Potassium 4.4 mmol/L (3.5-5.0); eGFR CKD-EPI 80.9 (>60)
[2022-10-22] MEDS: CMC:FLUTICAS/UMECLI/VILANT 100-62.5-25 MDI (NF) INH SCH (07:37)
[2022-10-22] MEDS: Magnesium Hydroxide LIQ 30 ML UDC PO SCH ×2 (09:01→20:35)
[2022-10-22] MEDS: Lidocaine PATCH 5% PATCH TRANSDERM SCH (09:01)
[2022-10-22] MEDS: Enoxaparin 40 MG/0.4 ML SYR SUBCUT SCH (12:21)
[2022-10-23] MEDS: CMC:FLUTICAS/UMECLI/VILANT 100-62.5-25 MDI (NF) INH SCH (07:48)
[2022-10-23] MEDS: Magnesium Hydroxide LIQ 30 ML UDC PO SCH (08:57)
[2022-10-23] MEDS: Lidocaine PATCH 5% PATCH TRANSDERM SCH (08:57)
[2022-10-23] MEDS: Lactated Ringers 1000 ml BAG 1,000 ML IV SCH (08:58)
[2022-10-23] MEDS: Enoxaparin 40 MG/0.4 ML SYR SUBCUT SCH (12:45)
[2022-10-23 12:52] VITALS: BP 114/61
== END 2022-10-23 14:00 | disposition home or self-care (01) ==
LOC: EDHOLD 22:19 → ED 22:19 → MEDTELE 10-21 02:54
PROVIDERS: ADMIT Internal Medicine; ATTEND Internal Medicine

== ENCOUNTER 2022-10-31 10:37 | Inpatient (IN) ==
[2022-10-31] MEDS ORDERED: NS 0.9% 1000 ml BAG 1,000 ML IV ONE ×2 (10:41→12:10)
[2022-10-31 11:33] LABS: ABS Basophils 0.1 10^3/ul (0-0.2); ABS Monocytes 0.9 10^3/ul (0-0.8); ABS Neutrophils 6.7 10^3/ul (1.5-7.7); Eosinophil % 0.6 %; Hematocrit 28 % (42-52); Hemoglobin 9.4 g/dL (14.0-18.0); Lymphocyte % 11.2 %; Mean Corpuscular HGB Conc 34 g/dL (31-36); Mean Corpuscular Hemoglobin 34 pg (27-31); Mean Corpuscular Volume 99 fL (80-94); Platelet Count 512 10^3/uL (150-450); Red Blood Count 2.79 10^6 /uL (4.18-5.48); Red Cell Distribution Width 14 % (10-15); White Blood Count 8.6 10^3/uL (3.5-10.8)
[2022-10-31 11:39] LABS: INR 1.25 (0.88-1.18)
[2022-10-31 11:57] LABS: High Sens Troponin Baseline 6 pg/mL (<20)
[2022-10-31 12:14] LABS: ALT 14 U/L (7-52); AST 12 U/L (13-39); Albumin 4.3 g/dL (3.2-5.2); Alkaline Phosphatase 141 U/L (35-149); Anion Gap 6 mmol/L (2-11); Blood Urea Nitrogen 22 mg/dL (6-24); C Reactive Protein < 1.00 mg/L (<8.01); CO2 Carbon Dioxide 26 mmol/L (22-32); Calcium 9.2 mg/dL (8.6-10.3); Chloride 104 mmol/L (101-111); Creatinine, Serum 1.32 mg/dL (0.67-1.17); Globulin 2.1 g/dL (2-4); Glucose 88 mg/dL (70-100); Lipase 21 U/L (11.0-82.0); Magnesium 2.4 mg/dL (1.9-2.7); Phosphorus 2.7 mg/dL (2.5-5.0); Potassium 4.6 mmol/L (3.5-5.0); Sodium 136 mmol/L (135-145); Total Protein 6.4 g/dL (6.4-8.9); eGFR CKD-EPI 54.5 (>60)
[2022-10-31 13:06] LABS: High Sensitivity Troponin 1 Hr 6 pg/mL (<20)
[2022-10-31] MEDS ORDERED: Senna TAB 8.6 mg TAB PO PRN (13:42)
[2022-10-31] MEDS ORDERED: Polyethylene Glycol 3350 17 GM PACKET PO PRN (13:42)
[2022-10-31] MEDS ORDERED: Magnesium Hydroxide LIQ 30 ML UDC PO PRN (13:42)
[2022-10-31 15:29] LABS: Ferritin 845.4 ng/mL (24-336)
[2022-10-31 15:45] LABS: % Iron Saturation 23 % (15-55); Iron 62 ug/dL (50-212); Total Iron Binding Capacity 266 mcg/dL (250-450); Transferrin 190 mg/dL (203-362); Unsaturated Iron Binding 204 ug/dL
[2022-10-31] MEDS: Enoxaparin 40 MG/0.4 ML SYR SUBCUT SCH (17:46)
[2022-10-31] MEDS: Polyethylene Glycol 3350 17 GM PACKET PO SCH (17:46)
[2022-10-31] MEDS: FLUTICAS/UMECLI/VILANT 100-62.5-25 MDI (NF) INH SCH (19:05)
[2022-10-31 21:33] LABS: Urine Appearance Clear; Urine Bilirubin Negative (Negative); Urine Blood Negative (Negative); Urine Color Yellow; Urine Glucose 1+(50 mg/dL) (Negative); Urine Ketones Trace (Negative); Urine Nitrite Negative (Negative); Urine Protein Negative (Negative); Urine Specific Gravity 1.019 (1.002-1.030); Urine Urobilinogen Negative (Negative)
[2022-11-01 05:53] LABS: ABS Basophils 0.1 10^3/ul (0-0.2); ABS Eosinophils 0.1 10^3/ul (0-0.6); ABS Lymphocytes 1.2 10^3/ul (1.0-4.8); ABS Monocytes 0.9 10^3/ul (0-0.8); ABS Neutrophils 3.8 10^3/ul (1.5-7.7); Eosinophil % 1.7 %; Hematocrit 25 % (42-52); Hemoglobin 8.6 g/dL (14.0-18.0); Mean Corpuscular HGB Conc 34 g/dL (31-36); Mean Corpuscular Hemoglobin 34 pg (27-31); Mean Corpuscular Volume 99 fL (80-94); Mean Platelet Volume 7.2 fL (7.4-10.4); Nucleated Red Blood Cells % 0.1; Platelet Count 467 10^3/uL (150-450); Red Blood Count 2.56 10^6 /uL (4.18-5.48); Red Cell Distribution Width 14 % (10-15); White Blood Count 6.1 10^3/uL (3.5-10.8)
[2022-11-01 06:18] LABS: Calcium 8.6 mg/dL (8.6-10.3); Creatinine, Serum 1.1 mg/dL (0.67-1.17); Potassium 4.7 mmol/L (3.5-5.0); eGFR CKD-EPI 67.9 (>60)
[2022-11-01] MEDS: FLUTICAS/UMECLI/VILANT 100-62.5-25 MDI (NF) INH SCH ×2 (07:27→18:54)
[2022-11-01] MEDS: Polyethylene Glycol 3350 17 GM PACKET PO SCH (08:46)
[2022-11-01] MEDS: Calcium Polycarbophil 625mg TB PO SCH (08:47)
[2022-11-01] MEDS: Lidocaine PATCH 5% PATCH TRANSDERM SCH (08:47)
[2022-11-01] MEDS: Senna TAB 8.6 mg TAB PO SCH (08:47)
[2022-11-01 09:05] LABS: Folate 12.11 ng/mL (5.90-24.80)
[2022-11-01 10:14] LABS: TSH Ultra Thyroid Stim Horm 0.94 mcIU/mL (0.34-5.60)
[2022-11-01] MEDS: Enoxaparin 40 MG/0.4 ML SYR SUBCUT SCH (15:38)
[2022-11-02] MEDS: FLUTICAS/UMECLI/VILANT 100-62.5-25 MDI (NF) INH SCH ×2 (07:12→17:50)
[2022-11-02] MEDS: Lidocaine PATCH 5% PATCH TRANSDERM SCH (09:11)
[2022-11-02] MEDS: Calcium Polycarbophil 625mg TB PO SCH (09:12)
[2022-11-02] MEDS: Senna TAB 8.6 mg TAB PO SCH (09:12)
[2022-11-02] MEDS: Polyethylene Glycol 3350 17 GM PACKET PO SCH (09:12)
[2022-11-02] MEDS: Enoxaparin 40 MG/0.4 ML SYR SUBCUT SCH (16:55)
[2022-11-03 06:33] LABS: ABS Basophils 0.1 10^3/ul (0-0.2); ABS Eosinophils 0.1 10^3/ul (0-0.6); ABS Lymphocytes 1.2 10^3/ul (1.0-4.8); ABS Monocytes 0.9 10^3/ul (0-0.8); ABS Neutrophils 3.7 10^3/ul (1.5-7.7); Eosinophil % 2.1 %; Hematocrit 27 % (42-52); Hemoglobin 9.3 g/dL (14.0-18.0); Lymphocyte % 20.6 %; Mean Corpuscular HGB Conc 35 g/dL (31-36); Mean Corpuscular Hemoglobin 35 pg (27-31); Mean Corpuscular Volume 101 fL (80-94); Mean Platelet Volume 7.4 fL (7.4-10.4); Platelet Count 430 10^3/uL (150-450); Red Blood Count 2.66 10^6 /uL (4.18-5.48); Red Cell Distribution Width 14 % (10-15)
[2022-11-03 06:49] LABS: Calcium 8.7 mg/dL (8.6-10.3); Creatinine, Serum 1.02 mg/dL (0.67-1.17); Potassium 4.6 mmol/L (3.5-5.0); eGFR CKD-EPI 74.3 (>60)
[2022-11-03] MEDS: FLUTICAS/UMECLI/VILANT 100-62.5-25 MDI (NF) INH SCH ×2 (08:07→19:43)
[2022-11-03] MEDS: Lidocaine PATCH 5% PATCH TRANSDERM SCH (08:23)
[2022-11-03] MEDS: Polyethylene Glycol 3350 17 GM PACKET PO SCH (08:24)
[2022-11-03] MEDS: Senna TAB 8.6 mg TAB PO SCH (08:27)
[2022-11-03] MEDS: Calcium Polycarbophil 625mg TB PO SCH (08:27)
[2022-11-03] MEDS: Enoxaparin 40 MG/0.4 ML SYR SUBCUT SCH (16:00)
[2022-11-04] MEDS: FLUTICAS/UMECLI/VILANT 100-62.5-25 MDI (NF) INH SCH (07:45)
[2022-11-04] MEDS: Calcium Polycarbophil 625mg TB PO SCH (08:56)
[2022-11-04] MEDS: Senna TAB 8.6 mg TAB PO SCH (08:56)
[2022-11-04] MEDS: Lidocaine PATCH 5% PATCH TRANSDERM SCH (08:57)
[2022-11-04] MEDS: Polyethylene Glycol 3350 17 GM PACKET PO SCH (08:57)
[2022-11-04] MEDS: CMCS: FLUTICAS/UMECLI/VILANT 100-62.5-25 MDI (NF) INH SCH (11:31)
[2022-11-04] MEDS: Enoxaparin 40 MG/0.4 ML SYR SUBCUT SCH (16:05)
[2022-11-05] MEDS: CMCS: FLUTICAS/UMECLI/VILANT 100-62.5-25 MDI (NF) INH SCH (07:24)
[2022-11-05] MEDS: Polyethylene Glycol 3350 17 GM PACKET PO SCH (08:21)
[2022-11-05] MEDS: Lidocaine PATCH 5% PATCH TRANSDERM SCH (08:21)
[2022-11-05] MEDS: Senna TAB 8.6 mg TAB PO SCH (08:22)
[2022-11-05] MEDS: Calcium Polycarbophil 625mg TB PO SCH (08:22)
[2022-11-05] MEDS: Enoxaparin 40 MG/0.4 ML SYR SUBCUT SCH (17:26)
[2022-11-06] MEDS: CMCS: FLUTICAS/UMECLI/VILANT 100-62.5-25 MDI (NF) INH SCH (07:49)
[2022-11-06] MEDS: Calcium Polycarbophil 625mg TB PO SCH (09:21)
[2022-11-06] MEDS: Senna TAB 8.6 mg TAB PO SCH (09:22)
[2022-11-06] MEDS: Lidocaine PATCH 5% PATCH TRANSDERM SCH (09:23)
[2022-11-06] MEDS: Polyethylene Glycol 3350 17 GM PACKET PO SCH (09:23)
[2022-11-06 15:04] LABS: Rapid COVID-19 Molecular Undetected (Undetected)
[2022-11-06] MEDS: Enoxaparin 40 MG/0.4 ML SYR SUBCUT SCH (15:55)
[2022-11-07] MEDS: CMCS: FLUTICAS/UMECLI/VILANT 100-62.5-25 MDI (NF) INH SCH (08:06)
[2022-11-07] MEDS: Calcium Polycarbophil 625mg TB PO SCH (08:50)
[2022-11-07] MEDS: Lidocaine PATCH 5% PATCH TRANSDERM SCH (09:16)
[2022-11-07] MEDS: Senna TAB 8.6 mg TAB PO SCH (09:17)
[2022-11-07] MEDS: Polyethylene Glycol 3350 17 GM PACKET PO SCH (09:17)
[2022-11-07 11:12] VITALS: BP 115/66
[2022-11-09 13:01] LABS: Lambda Free Light Chain, S 1.26 mg/dL
[2022-11-12 08:23] LABS: Albumin 3.4 g/dL (3.4-4.7); Albumin/Globulin Ratio 1.23; Gamma Globulin 1.1 g/dL (0.6-1.6); Total Protein(PEP) 6.1 g/dL (6.3 - 7.9)
[2022-11-13 19:33] LABS: Immunoglobulin A 211 mg/dL (61 - 356); Immunoglobulin G 319 mg/dL (767 - 1590); Immunoglobulin M 21 mg/dL (37 - 286)
== END 2022-11-07 15:00 | DRG 551 ==
LOC: ED 10:37 → SUATTDRO 13:42 → EDHOLD 13:42 → MED 16:53
PROVIDERS: ADMIT Physician Assistant; ATTEND Internal Medicine

== ENCOUNTER 2023-08-20 03:19 | Inpatient (IN) ==
[2023-08-20 06:57] LABS: Activated Partial Thrombo Time 32.5 seconds (26.0-38.0); INR 1.2 (0.83-1.13)
[2023-08-20 07:01] LABS: ABS Basophils 0.1 10^3/uL (0.0-0.1); ABS Monocytes 1.3 10^3/uL (0.0-1.1); ABS Neutrophils 15.6 10^3/uL (1.5-7.6); ABS Nucleated RBC 0.01 10^3/ul; Eosinophil % 0.3 %; Hematocrit 30.5 % (38-53); Hemoglobin 10.8 g/dL (13.2-16.3); Lymphocyte % 5.4 %; Mean Corpuscular Hgb Conc 35.3 g/dL (31-36); Mean Corpuscular Volume 104.8 fL (80-97); Mean Platelet Volume 7.4 fL (7.5-11.2); Nucleated Red Blood Cells % 0.1 %/100WBC (0.0-0.8); Platelet Count 441 10^3/uL (150-450); Red Blood Count 2.91 10^6/uL (4.06-5.63); Red Cell Distribution Width 14.4 % (12-17)
[2023-08-20 07:15] LABS: Calcium 8.6 mg/dL (8.6-10.3); Creatinine, Serum 0.98 mg/dL (0.67-1.17); Potassium 3.8 mmol/L (3.5-5.0); eGFR CKD-EPI 77.5 (>60)
[2023-08-20] MEDS ORDERED: Acetaminophen IV 1 GM/100ML 1,000 MG/100 ML BAG IV PRN (10:15)
[2023-08-20] MEDS ORDERED: Morphine 2 MG/ML SYRINGE IV PRN (10:16)
[2023-08-20] MEDS ORDERED: hydrALAZINE 20 mg/ml 1 ML Vial IV IV SLOW PU PRN (10:25)
[2023-08-20] MEDS: NS 0.9% 1000 ml BAG 1,000 ML IV SCH (11:07)
[2023-08-20] MEDS ORDERED: ROPIVACAINE 5 MG/ML 30 ML BTL (0.5%) ONE (16:46)
[2023-08-20] MEDS ORDERED: Rocuronium 50 mg VIAL 10 mg/ml 5 ml VIAL (50 mg) ONE (16:51)
[2023-08-20] MEDS ORDERED: Propofol 10 MG/ML 20 ML BTL ONE (16:51)
[2023-08-20] MEDS ORDERED: Lidocaine 2% PF 5 ML VIAL ONE (16:51)
[2023-08-20] MEDS ORDERED: HYDROmorphone 0.5 MG/0.5 ML SYRINGE ONE (17:44)
[2023-08-20] MEDS ORDERED: ceFAZolin 2 GM in NS PREMIX 2 GM/100 ML BAG IVPB ONE (18:02)
[2023-08-20] MEDS ORDERED: Acetaminophen IV 1 GM/100 ML BAG IV ONE (18:17)
[2023-08-20] MEDS ORDERED: Ondansetron 4 mg VIAL 2 MG/ML 2 ml VIAL ONE (19:08)
[2023-08-20] MEDS ORDERED: Magnesium Hydroxide LIQ 30 ML UDC PO PRN (19:58)
[2023-08-20] MEDS ORDERED: Polyethylene Glycol 3350 17 GM PACKET PO PRN (19:58)
[2023-08-20] MEDS ORDERED: Senna TAB 8.6 mg TAB PO PRN (19:58)
[2023-08-20] MEDS ORDERED: Metoclopramide 5 MG/ML VIAL (10 mg) IV PRN (20:27)
[2023-08-20] MEDS ORDERED: Naloxone 0.4 mg VIAL 0.4 mg/ml 1 ml VIAL IV PRN (20:27)
[2023-08-20] MEDS ORDERED: HYDROcodone/ACETAMIN 5/325 mg TAB PO PRN (20:27)
[2023-08-20] MEDS ORDERED: Ondansetron 4 mg VIAL 2 MG/ML 2 ml VIAL IV PRN (20:27)
[2023-08-20] MEDS ORDERED: oxyCODONE/Acetamin 5/325 mg TAB ONE (20:27)
[2023-08-20] MEDS ORDERED: fentaNYL 100 mcg/2 ml 50 MCG/ML VIAL ONE (20:27)
[2023-08-20] MEDS: fentaNYL 100 mcg/2 ml 50 MCG/ML VIAL IV PRN ×4 (20:32→20:54)
[2023-08-20] MEDS ORDERED: oxyCODONE/Acetamin 5/325 mg TAB PO ONE (20:36)
[2023-08-20] MEDS ORDERED: Magnesium Hydroxide LIQ 30 ML UDC PO SCH (21:00)
[2023-08-21] MEDS: NS 0.9% 1000 ml BAG 1,000 ML IV SCH (00:49)
[2023-08-21] MEDS: ceFAZolin 1 GM ADVAN 1 GM in NS 0.9% 50 ML 50 ML IVPB SCH ×3 (01:52→18:26)
[2023-08-21 06:10] LABS: ABS Lymphocytes 0.5 10^3/uL (1.0-4.8); ABS Monocytes 0.9 10^3/uL (0.0-1.1); ABS Neutrophils 10.7 10^3/uL (1.5-7.6); ABS Nucleated RBC 0.02 10^3/ul; Hematocrit 28.1 % (38-53); Hemoglobin 9.8 g/dL (13.2-16.3); Lymphocyte % 3.8 %; Mean Corpuscular Hemoglobin 36.7 pg (27-33); Mean Corpuscular Hgb Conc 34.9 g/dL (31-36); Mean Platelet Volume 7.6 fL (7.5-11.2); Nucleated Red Blood Cells % 0.2 %/100WBC (0.0-0.8); Platelet Count 441 10^3/uL (150-450); Red Blood Count 2.68 10^6/uL (4.06-5.63); Red Cell Distribution Width 14.7 % (12-17); White Blood Count 12.1 10^3/uL (3.6-10.2)
[2023-08-21 06:21] LABS: Calcium 7.6 mg/dL (8.6-10.3); Creatinine, Serum 1.05 mg/dL (0.67-1.17); Potassium 4.3 mmol/L (3.5-5.0); eGFR CKD-EPI 71.3 (>60)
[2023-08-21] MEDS ORDERED: Morphine 2 MG/ML SYRINGE IV PRN (09:02)
[2023-08-21] MEDS ORDERED: Polyethylene Glycol 3350 17 GM PACKET PO PRN (09:02)
[2023-08-21] MEDS ORDERED: Magnesium Hydroxide LIQ 30 ML UDC PO PRN (09:02)
[2023-08-21] MEDS ORDERED: Senna TAB 8.6 mg TAB PO PRN (09:02)
[2023-08-21] MEDS: Magnesium Hydroxide LIQ 30 ML UDC PO SCH ×2 (09:18→20:05)
[2023-08-21] MEDS ORDERED: Enoxaparin 40 MG/0.4 ML SYR SUBCUT SCH (12:00)
[2023-08-21] MEDS: Tiotropium Brom/Olodaterol MDI (ACUTE) INH SCH (12:20)
[2023-08-22 06:13] LABS: ABS Basophils 0.1 10^3/uL (0.0-0.1); ABS Eosinophils 0.1 10^3/uL (0.0-0.5); ABS Lymphocytes 0.8 10^3/uL (1.0-4.8); ABS Monocytes 1.4 10^3/uL (0.0-1.1); ABS Neutrophils 8.2 10^3/uL (1.5-7.6); Eosinophil % 0.5 %; Hematocrit 24.1 % (38-53); Hemoglobin 8.6 g/dL (13.2-16.3); Lymphocyte % 7.7 %; Mean Corpuscular Hemoglobin 37.8 pg (27-33); Mean Corpuscular Hgb Conc 35.8 g/dL (31-36); Mean Corpuscular Volume 105.6 fL (80-97); Mean Platelet Volume 7.8 fL (7.5-11.2); Platelet Count 338 10^3/uL (150-450); Red Blood Count 2.28 10^6/uL (4.06-5.63); Red Cell Distribution Width 14.7 % (12-17); White Blood Count 10.5 10^3/uL (3.6-10.2)
[2023-08-22 06:31] LABS: Calcium 7.6 mg/dL (8.6-10.3); Creatinine, Serum 1.09 mg/dL (0.67-1.17); Potassium 4.2 mmol/L (3.5-5.0); eGFR CKD-EPI 68.2 (>60)
[2023-08-22 06:32] VITALS: BP 118/62
[2023-08-22] MEDS: Magnesium Hydroxide LIQ 30 ML UDC PO SCH (08:50)
[2023-08-22] MEDS: Tiotropium Brom/Olodaterol MDI (ACUTE) INH SCH (08:52)
== END 2023-08-22 08:39 | DRG 522 ==
LOC: ED 03:19 → EDHOLD 08:33 → SSU 11:14
PROVIDERS: ADMIT Internal Medicine; ATTEND Internal Medicine

== ENCOUNTER 2023-08-22 08:09 | Inpatient (IN) ==
[2023-08-22] MEDS ORDERED: Magnesium Hydroxide LIQ 30 ML UDC PO PRN (08:39)
[2023-08-22] MEDS ORDERED: Senna TAB 8.6 mg TAB PO PRN (08:39)
[2023-08-22] MEDS ORDERED: Al Hydrox/Mg Hydrox/Simet LIQ 30 ML UDC PO PRN (08:39)
[2023-08-22] MEDS: Tiotropium Brom/Olodaterol MDI (ACUTE) INH SCH (10:48)
[2023-08-22] MEDS: Enoxaparin 40 MG/0.4 ML SYR SUBCUT SCH (12:11)
[2023-08-22] MEDS: Carbidopa/Levodop 25/100 MG TAB PO SCH (19:40)
[2023-08-23 06:54] LABS: Albumin 3.3 g/dL (3.2-5.2); Albumin/Globulin Ratio 1.5 (1-3); Calcium 7.4 mg/dL (8.6-10.3); Creatinine, Serum 0.9 mg/dL (0.67-1.17); Globulin 2.2 g/dL (2-4); Potassium 4.1 mmol/L (3.5-5.0); Total Bilirubin 0.6 mg/dL (0.2-1.0); Total Protein 5.5 g/dL (6.4-8.9); eGFR CKD-EPI 85.8 (>60)
[2023-08-23 07:26] LABS: ABS Eosinophils 0.1 10^3/uL (0.0-0.5); ABS Lymphocytes 0.9 10^3/uL (1.0-4.8); ABS Monocytes 1.2 10^3/uL (0.0-1.1); Eosinophil % 1.1 %; Hematocrit 23.5 % (38-53); Hemoglobin 8.3 g/dL (13.2-16.3); Lymphocyte % 9.7 %; Mean Corpuscular Hemoglobin 37.1 pg (27-33); Mean Corpuscular Hgb Conc 35.1 g/dL (31-36); Mean Corpuscular Volume 105.8 fL (80-97); Mean Platelet Volume 7.9 fL (7.5-11.2); Platelet Count 316 10^3/uL (150-450); Red Blood Count 2.23 10^6/uL (4.06-5.63); Red Cell Distribution Width 15.1 % (12-17); White Blood Count 9.3 10^3/uL (3.6-10.2)
[2023-08-23] MEDS ORDERED: Fluticasone NASAL SPRAY 50MCG 16 gm SPRAY BTL BOTH NARES SCH (09:00)
[2023-08-23] MEDS ORDERED: Influenza vaccine *QUAD* *2023-24* 0.5 ML SYRINGE IM ONE (09:00)
[2023-08-23] MEDS: Enoxaparin 40 MG/0.4 ML SYR SUBCUT SCH (09:51)
[2023-08-23] MEDS ORDERED: Fluticasone NASAL SPRAY 50MCG 16 gm SPRAY BTL BOTH NARES PRN (10:00)
[2023-08-23 11:47] LABS: Folate 14.25 ng/mL (5.90-24.80)
[2023-08-23] MEDS ORDERED: DARBEPOETIN ALFA ALBUMEN FREE SUBCUT ONE (12:00)
[2023-08-23] MEDS: Carbidopa/Levodop 25/100 MG TAB PO SCH ×2 (13:01→18:29)
[2023-08-23] MEDS: Tiotropium Brom/Olodaterol MDI (ACUTE) INH SCH (13:05)
[2023-08-23] MEDS ORDERED: Benzocaine/Menthol LOZ MT PRN (17:41)
[2023-08-24] MEDS: Tiotropium Brom/Olodaterol MDI (ACUTE) INH SCH (07:27)
[2023-08-24] MEDS: Enoxaparin 40 MG/0.4 ML SYR SUBCUT SCH (07:29)
[2023-08-24] MEDS: Carbidopa/Levodop 25/100 MG TAB PO SCH ×2 (12:41→18:55)
[2023-08-25] MEDS: Enoxaparin 40 MG/0.4 ML SYR SUBCUT SCH (08:39)
[2023-08-25] MEDS: Tiotropium Brom/Olodaterol MDI (ACUTE) INH SCH (08:40)
[2023-08-25] MEDS: Carbidopa/Levodop 25/100 MG TAB PO SCH ×2 (12:05→18:05)
[2023-08-26] MEDS: Carbidopa/Levodop 25/100 MG TAB PO SCH ×3 (06:04→18:40)
[2023-08-26] MEDS: Enoxaparin 40 MG/0.4 ML SYR SUBCUT SCH (07:07)
[2023-08-26] MEDS: Tiotropium Brom/Olodaterol MDI (ACUTE) INH SCH (07:07)
[2023-08-26 09:15] LABS: Hematocrit 24.4 % (38-53); Hemoglobin 8.6 g/dL (13.2-16.3)
[2023-08-27] MEDS: Carbidopa/Levodop 25/100 MG TAB PO SCH ×3 (06:11→18:47)
[2023-08-27] MEDS: Tiotropium Brom/Olodaterol MDI (ACUTE) INH SCH (07:34)
[2023-08-27] MEDS: Enoxaparin 40 MG/0.4 ML SYR SUBCUT SCH (10:16)
[2023-08-28] MEDS: Carbidopa/Levodop 25/100 MG TAB PO SCH ×3 (06:02→18:22)
[2023-08-28] MEDS: Enoxaparin 40 MG/0.4 ML SYR SUBCUT SCH (09:21)
[2023-08-28] MEDS: Tiotropium Brom/Olodaterol MDI (ACUTE) INH SCH (09:25)
[2023-08-29] MEDS: Carbidopa/Levodop 25/100 MG TAB PO SCH ×3 (06:13→18:50)
[2023-08-29] MEDS: Enoxaparin 40 MG/0.4 ML SYR SUBCUT SCH (08:16)
[2023-08-29] MEDS: Tiotropium Brom/Olodaterol MDI (ACUTE) INH SCH (08:19)
[2023-08-30] MEDS: Carbidopa/Levodop 25/100 MG TAB PO SCH ×3 (06:05→18:20)
[2023-08-30 07:02] LABS: ABS Basophils 0.2 10^3/uL (0.0-0.1); ABS Eosinophils 0.2 10^3/uL (0.0-0.5); ABS Lymphocytes 1.1 10^3/uL (1.0-4.8); ABS Monocytes 0.9 10^3/uL (0.0-1.1); ABS Neutrophils 5.1 10^3/uL (1.5-7.6); ABS Nucleated RBC 0.01 10^3/ul; Eosinophil % 2.7 %; Hematocrit 22.9 % (38-53); Hemoglobin 7.9 g/dL (13.2-16.3); Lymphocyte % 14.8 %; Mean Corpuscular Hemoglobin 35.6 pg (27-33); Mean Corpuscular Hgb Conc 34.2 g/dL (31-36); Mean Corpuscular Volume 104.1 fL (80-97); Mean Platelet Volume 6.8 fL (7.5-11.2); Nucleated Red Blood Cells % 0.1 %/100WBC (0.0-0.8); Platelet Count 626 10^3/uL (150-450); White Blood Count 7.4 10^3/uL (3.6-10.2)
[2023-08-30 07:24] LABS: Albumin 3.1 g/dL (3.2-5.2); Albumin/Globulin Ratio 1.3 (1-3); Calcium 7.7 mg/dL (8.6-10.3); Creatinine, Serum 0.92 mg/dL (0.67-1.17); Globulin 2.4 g/dL (2-4); Potassium 4.2 mmol/L (3.5-5.0); Total Bilirubin 0.5 mg/dL (0.2-1.0); Total Protein 5.5 g/dL (6.4-8.9); eGFR CKD-EPI 83.6 (>60)
[2023-08-30] MEDS: Tiotropium Brom/Olodaterol MDI (ACUTE) INH SCH (09:22)
[2023-08-30] MEDS: Enoxaparin 40 MG/0.4 ML SYR SUBCUT SCH (09:24)
[2023-08-31] MEDS: Carbidopa/Levodop 25/100 MG TAB PO SCH ×3 (04:47→18:16)
[2023-08-31] MEDS: Enoxaparin 40 MG/0.4 ML SYR SUBCUT SCH (09:57)
[2023-08-31] MEDS: Tiotropium Brom/Olodaterol MDI (ACUTE) INH SCH (09:58)
[2023-09-01] MEDS: Carbidopa/Levodop 25/100 MG TAB PO SCH ×3 (05:21→18:30)
[2023-09-01] MEDS: Enoxaparin 40 MG/0.4 ML SYR SUBCUT SCH (07:40)
[2023-09-01] MEDS: Tiotropium Brom/Olodaterol MDI (ACUTE) INH SCH (07:57)
[2023-09-02] MEDS: Carbidopa/Levodop 25/100 MG TAB PO SCH ×3 (05:59→18:13)
[2023-09-02] MEDS: Enoxaparin 40 MG/0.4 ML SYR SUBCUT SCH (08:07)
[2023-09-02] MEDS: Tiotropium Brom/Olodaterol MDI (ACUTE) INH SCH (08:12)
[2023-09-02 08:24] LABS: ABS Basophils 0.1 10^3/uL (0.0-0.1); ABS Eosinophils 0.1 10^3/uL (0.0-0.5); ABS Monocytes 0.6 10^3/uL (0.0-1.1); ABS Neutrophils 4.2 10^3/uL (1.5-7.6); ABS Nucleated RBC 0.01 10^3/ul; Eosinophil % 2.4 %; Hematocrit 23.1 % (38-53); Lymphocyte % 16.7 %; Mean Corpuscular Hemoglobin 35.7 pg (27-33); Mean Corpuscular Hgb Conc 34.4 g/dL (31-36); Mean Corpuscular Volume 103.6 fL (80-97); Mean Platelet Volume 6.6 fL (7.5-11.2); Nucleated Red Blood Cells % 0.1 %/100WBC (0.0-0.8); Platelet Count 665 10^3/uL (150-450); Red Blood Count 2.23 10^6/uL (4.06-5.63); Red Cell Distribution Width 15.4 % (12-17); White Blood Count 6.1 10^3/uL (3.6-10.2)
[2023-09-02 19:11] LABS: Urine Appearance Clear; Urine Bilirubin Negative (Negative); Urine Blood Negative (Negative); Urine Color Yellow; Urine Glucose Negative (Negative); Urine Ketones Negative (Negative); Urine Nitrite Negative (Negative); Urine Protein Negative (Negative); Urine Specific Gravity 1.011 (1.002-1.030); Urine Urobilinogen Negative (Negative)
[2023-09-03] MEDS: Carbidopa/Levodop 25/100 MG TAB PO SCH ×3 (06:45→17:54)
[2023-09-03] MEDS: Enoxaparin 40 MG/0.4 ML SYR SUBCUT SCH (07:41)
[2023-09-03] MEDS: Tiotropium Brom/Olodaterol MDI (ACUTE) INH SCH (07:42)
[2023-09-04] MEDS: Carbidopa/Levodop 25/100 MG TAB PO SCH ×3 (04:04→17:51)
[2023-09-04] MEDS: Tiotropium Brom/Olodaterol MDI (ACUTE) INH SCH (10:26)
[2023-09-04] MEDS: Enoxaparin 40 MG/0.4 ML SYR SUBCUT SCH (10:26)
[2023-09-05] MEDS: Carbidopa/Levodop 25/100 MG TAB PO SCH ×3 (05:57→18:02)
[2023-09-05] MEDS: Tiotropium Brom/Olodaterol MDI (ACUTE) INH SCH (09:41)
[2023-09-05] MEDS: Enoxaparin 40 MG/0.4 ML SYR SUBCUT SCH (09:43)
[2023-09-06] MEDS: Carbidopa/Levodop 25/100 MG TAB PO SCH ×3 (06:02→17:45)
[2023-09-06 06:50] LABS: ABS Basophils 0.1 10^3/uL (0.0-0.1); ABS Eosinophils 0.1 10^3/uL (0.0-0.5); ABS Lymphocytes 0.9 10^3/uL (1.0-4.8); ABS Monocytes 1.3 10^3/uL (0.0-1.1); ABS Neutrophils 8.7 10^3/uL (1.5-7.6); ABS Nucleated RBC 0.01 10^3/ul; Eosinophil % 0.8 %; Hematocrit 22.1 % (38-53); Hemoglobin 7.8 g/dL (13.2-16.3); Lymphocyte % 8.1 %; Mean Corpuscular Hemoglobin 36.1 pg (27-33); Mean Corpuscular Hgb Conc 35.1 g/dL (31-36); Mean Corpuscular Volume 102.7 fL (80-97); Mean Platelet Volume 6.8 fL (7.5-11.2); Nucleated Red Blood Cells % 0.1 %/100WBC (0.0-0.8); Platelet Count 594 10^3/uL (150-450); Red Blood Count 2.15 10^6/uL (4.06-5.63); Red Cell Distribution Width 16.4 % (12-17)
[2023-09-06 07:44] LABS: Albumin 3.2 g/dL (3.2-5.2); Albumin/Globulin Ratio 1.4 (1-3); Calcium 7.8 mg/dL (8.6-10.3); Creatinine, Serum 0.91 mg/dL (0.67-1.17); Globulin 2.3 g/dL (2-4); Potassium 3.9 mmol/L (3.5-5.0); Total Bilirubin 0.6 mg/dL (0.2-1.0); Total Protein 5.5 g/dL (6.4-8.9); eGFR CKD-EPI 84.7 (>60)
[2023-09-06] MEDS: Tiotropium Brom/Olodaterol MDI (ACUTE) INH SCH (09:54)
[2023-09-06] MEDS: Enoxaparin 40 MG/0.4 ML SYR SUBCUT SCH (09:54)
[2023-09-06] MEDS ORDERED: DARBEPOETIN ALFA ALBUMEN FREE SUBCUT ONE (16:21)
[2023-09-07] MEDS: Carbidopa/Levodop 25/100 MG TAB PO SCH ×3 (05:53→17:33)
[2023-09-07 08:40] LABS: ABS Basophils 0.1 10^3/uL (0.0-0.1); ABS Eosinophils 0.1 10^3/uL (0.0-0.5); ABS Lymphocytes 1.2 10^3/uL (1.0-4.8); ABS Monocytes 1.1 10^3/uL (0.0-1.1); ABS Neutrophils 6.7 10^3/uL (1.5-7.6); ABS Nucleated RBC 0.01 10^3/ul; Eosinophil % 1.4 %; Hematocrit 25.8 % (38-53); Lymphocyte % 13.4 %; Mean Corpuscular Hemoglobin 35.5 pg (27-33); Mean Corpuscular Hgb Conc 34.8 g/dL (31-36); Mean Corpuscular Volume 101.9 fL (80-97); Nucleated Red Blood Cells % 0.1 %/100WBC (0.0-0.8); Red Blood Count 2.53 10^6/uL (4.06-5.63); Red Cell Distribution Width 17.8 % (12-17); White Blood Count 9.3 10^3/uL (3.6-10.2)
[2023-09-07] MEDS: Enoxaparin 40 MG/0.4 ML SYR SUBCUT SCH (08:51)
[2023-09-07] MEDS: Tiotropium Brom/Olodaterol MDI (ACUTE) INH SCH (08:53)
[2023-09-07 09:21] LABS: Platelet Count Platelets clumped. 10^3/uL (150-450)
[2023-09-08] MEDS: Carbidopa/Levodop 25/100 MG TAB PO SCH ×3 (04:50→17:33)
[2023-09-08] MEDS: Enoxaparin 40 MG/0.4 ML SYR SUBCUT SCH (08:12)
[2023-09-08] MEDS: Tiotropium Brom/Olodaterol MDI (ACUTE) INH SCH (08:12)
[2023-09-09] MEDS: Carbidopa/Levodop 25/100 MG TAB PO SCH ×3 (04:57→18:02)
[2023-09-09] MEDS: Enoxaparin 40 MG/0.4 ML SYR SUBCUT SCH (10:06)
[2023-09-09] MEDS: Tiotropium Brom/Olodaterol MDI (ACUTE) INH SCH (10:07)
[2023-09-10] MEDS: Carbidopa/Levodop 25/100 MG TAB PO SCH ×3 (05:36→17:59)
[2023-09-10] MEDS: Tiotropium Brom/Olodaterol MDI (ACUTE) INH SCH (10:14)
[2023-09-10] MEDS: Enoxaparin 40 MG/0.4 ML SYR SUBCUT SCH (10:16)
[2023-09-11] MEDS: Carbidopa/Levodop 25/100 MG TAB PO SCH ×3 (05:55→17:20)
[2023-09-11] MEDS: Enoxaparin 40 MG/0.4 ML SYR SUBCUT SCH (08:40)
[2023-09-11] MEDS: Tiotropium Brom/Olodaterol MDI (ACUTE) INH SCH (08:43)
[2023-09-12] MEDS: Carbidopa/Levodop 25/100 MG TAB PO SCH ×3 (05:27→18:15)
[2023-09-12] MEDS: Tiotropium Brom/Olodaterol MDI (ACUTE) INH SCH (09:42)
[2023-09-12] MEDS: Enoxaparin 40 MG/0.4 ML SYR SUBCUT SCH (09:43)
[2023-09-12 19:08] LABS: Rapid COVID-19 Molecular Undetected (Undetected)
[2023-09-13] MEDS: Carbidopa/Levodop 25/100 MG TAB PO SCH (04:24)
[2023-09-13 07:04] LABS: Hematocrit 25.5 % (38-53); Mean Corpuscular Hemoglobin 35.4 pg (27-33); Mean Corpuscular Hgb Conc 35.3 g/dL (31-36); Mean Corpuscular Volume 100.2 fL (80-97); Mean Platelet Volume 6.3 fL (7.5-11.2); Platelet Count 556 10^3/uL (150-450); Red Blood Count 2.54 10^6/uL (4.06-5.63); Red Cell Distribution Width 16.9 % (12-17); White Blood Count 6.8 10^3/uL (3.6-10.2)
[2023-09-13 07:13] LABS: Anion Gap 4 mmol/L (2-16); Blood Urea Nitrogen 10 mg/dL (6-24); CO2 Carbon Dioxide 29 mmol/L (22-32); Calcium 7.8 mg/dL (8.6-10.3); Chloride 107 mmol/L (101-111); Creatinine, Serum 0.84 mg/dL (0.67-1.17); Glucose 97 mg/dL (70-100); Potassium 3.7 mmol/L (3.5-5.0); Sodium 140 mmol/L (135-145); eGFR CKD-EPI 87.6 (>60)
[2023-09-13 07:42] LABS: ALT < 3 U/L (7-52); AST 8 U/L (13-39); Albumin 3.2 g/dL (3.2-5.2); Albumin/Globulin Ratio 1.5 (1-3); Alkaline Phosphatase 140 U/L (35-149); Globulin 2.2 g/dL (2-4); Total Bilirubin 0.4 mg/dL (0.2-1.0); Total Protein 5.4 g/dL (6.4-8.9)
[2023-09-13 08:00] LABS: ABS Basophils 0.1 10^3/uL (0.0-0.1); ABS Eosinophils 0.2 10^3/uL (0.0-0.5); ABS Monocytes 0.8 10^3/uL (0.0-1.1); ABS Neutrophils 4.6 10^3/uL (1.5-7.6); ABS Nucleated RBC 0.01 10^3/ul; Eosinophil % 3.5 %; Lymphocyte % 15.5 %; Nucleated Red Blood Cells % 0.1 %/100WBC (0.0-0.8)
[2023-09-13 08:41] VITALS: BP 144/65
[2023-09-13] MEDS: Enoxaparin 40 MG/0.4 ML SYR SUBCUT SCH (08:50)
[2023-09-13] MEDS: Tiotropium Brom/Olodaterol MDI (ACUTE) INH SCH (08:58)
== END 2023-09-13 11:30 | DRG 560 ==
LOC: PMRU 10:14
PROVIDERS: ADMIT Physical Medicine & Rehabilitation; ATTEND Physical Medicine & Rehabilitation

== ENCOUNTER 2024-03-08 16:24 | Inpatient (IN) ==
[2024-03-08 18:16] LABS: ABS Basophils 0.1 10^3/uL (0.0-0.1); ABS Eosinophils 0.1 10^3/uL (0.0-0.5); ABS Monocytes 0.7 10^3/uL (0.0-1.1); ABS Neutrophils 3.9 10^3/uL (1.5-7.6); ABS Nucleated RBC 0.01 10^3/ul; Eosinophil % 1.4 %; Hemoglobin 10.5 g/dL (13.2-16.3); Lymphocyte % 17.8 %; Mean Corpuscular Hemoglobin 37.2 pg (27-33); Mean Corpuscular Volume 106.2 fL (80-97); Mean Platelet Volume 7.2 fL (7.5-11.2); Nucleated Red Blood Cells % 0.1 %/100WBC (0.0-0.8); Platelet Count 475 10^3/uL (150-450); Red Blood Count 2.83 10^6/uL (4.06-5.63); Red Cell Distribution Width 15.5 % (12-17); White Blood Count 5.8 10^3/uL (3.6-10.2)
[2024-03-08 18:20] LABS: INR 1.16 (0.83-1.13)
[2024-03-08 18:47] LABS: Albumin 4.3 g/dL (3.2-5.2); Calcium 9.4 mg/dL (8.6-10.3); Creatinine, Serum 1.05 mg/dL (0.67-1.17); Globulin 2.2 g/dL (2-4); Potassium 4.9 mmol/L (3.5-5.0); Total Bilirubin 0.5 mg/dL (0.2-1.0); Total Protein 6.5 g/dL (6.4-8.9); eGFR CKD-EPI 70.9 (>60)
[2024-03-08] MEDS ORDERED: Fluticasone NASAL SPRAY 50MCG 16 gm SPRAY BTL INTRANASAL PRN (22:37)
[2024-03-08] MEDS ORDERED: Albuterol HFA INHALER 8 gm MDI INH PRN (22:37)
[2024-03-09] MEDS ORDERED: Morphine 2 MG/ML SYRINGE IV PRN (03:05)
[2024-03-09] MEDS ORDERED: Senna TAB 8.6 mg TAB PO PRN (03:06)
[2024-03-09] MEDS: Carbidopa/Levodop 25/100 MG TAB PO SCH (03:12)
[2024-03-09 03:54] LABS: Folate 12.17 ng/mL (5.90-24.80)
[2024-03-09 04:32] LABS: Ferritin 690.8 ng/mL (24-336)
[2024-03-09] MEDS: Acetaminophen IV 1 GM/100ML 1,000 MG/100 ML BAG IV PRN (06:22)
[2024-03-09 06:35] LABS: ABS Basophils 0.1 10^3/uL (0.0-0.1); ABS Eosinophils 0.1 10^3/uL (0.0-0.5); ABS Lymphocytes 1.1 10^3/uL (1.0-4.8); ABS Monocytes 0.9 10^3/uL (0.0-1.1); ABS Neutrophils 6.3 10^3/uL (1.5-7.6); ABS Nucleated RBC 0.01 10^3/ul; Eosinophil % 1.6 %; Hematocrit 29.8 % (38-53); Hemoglobin 10.3 g/dL (13.2-16.3); Lymphocyte % 13.3 %; Mean Corpuscular Hemoglobin 36.5 pg (27-33); Mean Corpuscular Hgb Conc 34.4 g/dL (31-36); Mean Corpuscular Volume 106.1 fL (80-97); Mean Platelet Volume 7.3 fL (7.5-11.2); Nucleated Red Blood Cells % 0.1 %/100WBC (0.0-0.8); Platelet Count 484 10^3/uL (150-450); Red Blood Count 2.81 10^6/uL (4.06-5.63); Red Cell Distribution Width 15.4 % (12-17); White Blood Count 8.6 10^3/uL (3.6-10.2)
[2024-03-09 07:17] LABS: Calcium 8.7 mg/dL (8.6-10.3); Creatinine, Serum 1.07 mg/dL (0.67-1.17); Magnesium 2.2 mg/dL (1.9-2.7); Potassium 4.4 mmol/L (3.5-5.0); eGFR CKD-EPI 69.3 (>60)
[2024-03-09] MEDS: Tiotropium Brom/Olodaterol MDI (ACUTE) INH SCH (07:24)
[2024-03-09 10:09] LABS: INR 1.18 (0.83-1.13)
[2024-03-10] MEDS ORDERED: Phenylephrine IV 10 MG/ML 1 ml VIAL ONE (06:34)
[2024-03-10 06:39] LABS: Calcium 8.5 mg/dL (8.6-10.3); Creatinine, Serum 1.1 mg/dL (0.67-1.17); Magnesium 1.9 mg/dL (1.9-2.7); Potassium 4.4 mmol/L (3.5-5.0)
[2024-03-10] MEDS ORDERED: Bupivacaine 0.5% SDV PF 30ML VIAL ONE (07:00)
[2024-03-10] MEDS ORDERED: Dexamethasone IV 4 MG/ML VIAL 1 ml VIAL ONE (07:10)
[2024-03-10] MEDS ORDERED: Propofol 10 MG/ML 20 ML BTL ONE (07:10)
[2024-03-10] MEDS ORDERED: Lidocaine 2% PF 5 ML VIAL ONE (07:10)
[2024-03-10] MEDS ORDERED: Ondansetron 4 mg VIAL 2 MG/ML 2 ml VIAL ONE (07:10)
[2024-03-10] MEDS ORDERED: Rocuronium 50 mg VIAL 10 mg/ml 5 ml VIAL (50 mg) ONE (07:10)
[2024-03-10] MEDS ORDERED: ceFAZolin 2 GM PREMIX 2 GM/50 ML BAG ONE (07:21)
[2024-03-10 08:22] LABS: Hematocrit 28.1 % (38-53); Hemoglobin 9.9 g/dL (13.2-16.3); Mean Corpuscular Hemoglobin 37.2 pg (27-33); Mean Corpuscular Hgb Conc 35.1 g/dL (31-36); Mean Platelet Volume 7.4 fL (7.5-11.2); Platelet Count 391 10^3/uL (150-450); Red Blood Count 2.65 10^6/uL (4.06-5.63); Red Cell Distribution Width 15.4 % (12-17)
[2024-03-10] MEDS ORDERED: HYDROmorphone 0.5 MG/0.5 ML SYRINGE ONE (08:22)
[2024-03-10] MEDS ORDERED: Naloxone 0.4 mg VIAL 0.4 mg/ml 1 ml VIAL IV PRN (08:44)
[2024-03-10] MEDS ORDERED: fentaNYL 100 mcg/2 ml 50 MCG/ML VIAL ONE (10:12)
[2024-03-10] MEDS: fentaNYL 100 mcg/2 ml 50 MCG/ML VIAL IV PRN (10:14)
[2024-03-10 11:18] LABS: Hematocrit 27.7 % (38-53); Hemoglobin 9.6 g/dL (13.2-16.3)
[2024-03-10] MEDS: Lactated Ringers 1000 ml BAG 1,000 ML IV SCH (11:51)
[2024-03-10] MEDS: ceFAZolin 2 GM in NS PREMIX 2 GM/100 ML BAG IVPB SCH (15:52)
[2024-03-11] MEDS: ceFAZolin 2 GM/50 ML BAG IV ONE (06:07)
[2024-03-11 06:40] LABS: Hematocrit 24.1 % (38-53); Hemoglobin 8.4 g/dL (13.2-16.3); Mean Corpuscular Hemoglobin 36.9 pg (27-33); Mean Corpuscular Hgb Conc 34.9 g/dL (31-36); Mean Corpuscular Volume 105.8 fL (80-97); Mean Platelet Volume 7.8 fL (7.5-11.2); Platelet Count 400 10^3/uL (150-450); Red Blood Count 2.28 10^6/uL (4.06-5.63); Red Cell Distribution Width 15.2 % (12-17); White Blood Count 12.3 10^3/uL (3.6-10.2)
[2024-03-11 08:38] LABS: Calcium 8.1 mg/dL (8.6-10.3); Creatinine, Serum 0.99 mg/dL (0.67-1.17); Magnesium 1.9 mg/dL (1.9-2.7); Potassium 4.5 mmol/L (3.5-5.0); eGFR CKD-EPI 76.1 (>60)
[2024-03-11] MEDS: Enoxaparin 30 MG/0.3 ML SYR SUBCUT SCH (09:12)
[2024-03-12 06:32] LABS: Hematocrit 22.3 % (38-53); Hemoglobin 7.7 g/dL (13.2-16.3); Mean Corpuscular Hemoglobin 36.7 pg (27-33); Mean Corpuscular Hgb Conc 34.5 g/dL (31-36); Mean Corpuscular Volume 106.3 fL (80-97); Mean Platelet Volume 8.3 fL (7.5-11.2); Platelet Count 353 10^3/uL (150-450); Red Cell Distribution Width 15.2 % (12-17); White Blood Count 9.8 10^3/uL (3.6-10.2)
[2024-03-12 06:49] LABS: Calcium 7.8 mg/dL (8.6-10.3); Creatinine, Serum 0.96 mg/dL (0.67-1.17); Magnesium 1.9 mg/dL (1.9-2.7); Potassium 3.7 mmol/L (3.5-5.0); eGFR CKD-EPI 78.9 (>60)
[2024-03-12] MEDS: Magnesium Sulfate 2 gm BAG 2 GM/50 ML BAG IVPB ONE (10:08)
[2024-03-12] MEDS: KCL 20 MEQ/100 ML IVPREMIX 20 MEQ/100 ML BAG IV ONE (10:09)
[2024-03-12] MEDS: Calcium/Vitamin D TAB 250/125 TAB PO SCH (10:24)
[2024-03-12 16:31] LABS: Rapid COVID-19 Molecular Undetected (Undetected)
[2024-03-13 05:58] LABS: Hematocrit 20.2 % (38-53); Hemoglobin 6.9 g/dL (13.2-16.3); Mean Corpuscular Hemoglobin 36.4 pg (27-33); Mean Corpuscular Hgb Conc 34.2 g/dL (31-36); Mean Corpuscular Volume 106.2 fL (80-97); Mean Platelet Volume 8.1 fL (7.5-11.2); Platelet Count 336 10^3/uL (150-450); Red Cell Distribution Width 15.2 % (12-17); White Blood Count 8.2 10^3/uL (3.6-10.2)
[2024-03-13 06:25] LABS: Calcium 7.8 mg/dL (8.6-10.3); Creatinine, Serum 0.92 mg/dL (0.67-1.17); eGFR CKD-EPI 83.1 (>60)
[2024-03-13 08:18] LABS: Hematocrit 19.2 % (38-53); Hemoglobin 6.9 g/dL (13.2-16.3)
[2024-03-13 15:27] LABS: Calcium 8.2 mg/dL (8.6-10.3); Creatinine, Serum 0.9 mg/dL (0.67-1.17); Potassium 4.1 mmol/L (3.5-5.0); eGFR CKD-EPI 85.3 (>60)
[2024-03-14 06:47] LABS: Hematocrit 22.8 % (38-53); Hemoglobin 8.1 g/dL (13.2-16.3); Mean Corpuscular Hemoglobin 35.7 pg (27-33); Mean Corpuscular Hgb Conc 35.4 g/dL (31-36); Mean Corpuscular Volume 100.7 fL (80-97); Mean Platelet Volume 7.8 fL (7.5-11.2); Platelet Count 353 10^3/uL (150-450); Red Blood Count 2.27 10^6/uL (4.06-5.63); Red Cell Distribution Width 19.9 % (12-17); White Blood Count 7.3 10^3/uL (3.6-10.2)
[2024-03-14] MEDS ORDERED: Senna TAB 8.6 mg TAB PO PRN (09:24)
[2024-03-14] MEDS ORDERED: NS 0.9% 1000 ml BAG 1,000 ML IV SCH (11:00)
[2024-03-15 08:29] LABS: Hematocrit 24.7 % (38-53); Hemoglobin 8.6 g/dL (13.2-16.3); Mean Corpuscular Hemoglobin 35.2 pg (27-33); Mean Corpuscular Hgb Conc 34.7 g/dL (31-36); Mean Corpuscular Volume 101.3 fL (80-97); Mean Platelet Volume 7.7 fL (7.5-11.2); Platelet Count 465 10^3/uL (150-450); Red Blood Count 2.44 10^6/uL (4.06-5.63); Red Cell Distribution Width 18.9 % (12-17); White Blood Count 7.5 10^3/uL (3.6-10.2)
[2024-03-15] MEDS: Polyethylene Glycol 3350 17 GM PACKET PO PRN (08:38)
[2024-03-16 07:06] LABS: Hematocrit 25.7 % (38-53); Hemoglobin 9.1 g/dL (13.2-16.3); Mean Corpuscular Hemoglobin 35.5 pg (27-33); Mean Corpuscular Hgb Conc 35.2 g/dL (31-36); Mean Corpuscular Volume 100.8 fL (80-97); Mean Platelet Volume 7.6 fL (7.5-11.2); Platelet Count 470 10^3/uL (150-450); Red Blood Count 2.55 10^6/uL (4.06-5.63); Red Cell Distribution Width 18.3 % (12-17); White Blood Count 7.3 10^3/uL (3.6-10.2)
[2024-03-16 10:02] VITALS: BP 123/62
== END 2024-03-16 13:15 | DRG 522 ==
LOC: ED 16:24 → SUATTDRO 22:22 → EDHOLD 22:22 → SSU 23:06
PROVIDERS: ADMIT Internal Medicine; ATTEND Family Medicine

== ENCOUNTER 2024-09-22 15:37 | Inpatient (IN) ==
[2024-09-22] MEDS: Ondansetron 4 mg VIAL 2 MG/ML 2 ml VIAL IV ONE (17:38)
[2024-09-22 17:53] LABS: Hematocrit 29.3 % (38-53); Mean Corpuscular Hemoglobin 36.2 pg (27-33); Mean Corpuscular Hgb Conc 34.2 g/dL (31-36); Mean Corpuscular Volume 105.9 fL (80-97); Mean Platelet Volume 7.9 fL (7.5-11.2); Platelet Count 717 10^3/uL (150-450); Red Blood Count 2.76 10^6/uL (4.06-5.63); Red Cell Distribution Width 16.1 % (12-17); White Blood Count 18.9 10^3/uL (3.6-10.2)
[2024-09-22 18:05] LABS: ALT 3 U/L (7-52); AST 12 U/L (13-39); Albumin 4.7 g/dL (3.2-5.2); Albumin/Globulin Ratio 2.2 (1-3); Alkaline Phosphatase 68 U/L (35-149); Anion Gap 8 mmol/L (2-16); Blood Urea Nitrogen 22 mg/dL (6-24); C Reactive Protein 5.46 mg/L (<8.01); CO2 Carbon Dioxide 30 mmol/L (22-32); Calcium 10.4 mg/dL (8.6-10.3); Chloride 102 mmol/L (101-111); Creatinine, Serum 1.18 mg/dL (0.67-1.17); Globulin 2.1 g/dL (2-4); Glucose 157 mg/dL (70-100); Lipase < 10 U/L (11.0-82.0); Potassium 3.8 mmol/L (3.5-5.0); Sodium 140 mmol/L (135-145); Total Protein 6.8 g/dL (6.4-8.9); eGFR CKD-EPI 61.6 (>60)
[2024-09-22] MEDS: LACTATED RINGERS IV ONE (18:58)
[2024-09-22 19:05] LABS: ABS Basophils 0.1 10^3/uL (0.0-0.1); ABS Eosinophils 0.1 10^3/uL (0.0-0.5); ABS Lymphocytes 0.5 10^3/uL (1.0-4.8); ABS Monocytes 1.1 10^3/uL (0.0-1.1); ABS Neutrophils 17.1 10^3/uL (1.5-7.6); ABS Nucleated RBC 0.01 10^3/ul; Anisocytosis 2+; Eosinophil % 0.4 %; Lymphocyte % 2.8 %; Macrocytosis 1+; Nucleated Red Blood Cells % 0.1 %/100WBC (0.0-0.8)
[2024-09-22] MEDS: Acetaminophen IV 1 GM/100ML 1,000 MG/100 ML BAG IV ONE (22:32)
[2024-09-22 22:33] LABS: Urine Appearance Clear; Urine Bacteria Absent /HPF (Absent); Urine Bilirubin Negative (Negative); Urine Blood 2+ (Negative); Urine Color Light-Yellow; Urine Glucose Negative (Negative); Urine Ketones Negative (Negative); Urine Nitrite Negative (Negative); Urine Protein Trace (Negative); Urine Red Blood Cell 3+(>10/hpf) /HPF (0-Trace); Urine Specific Gravity >1.050 (1.002-1.030); Urine Squamous Epithelial Cell Present /HPF (Absent); Urine Urobilinogen Negative (Negative); Urine White Blood Cell Trace(0-5/hpf) /HPF (0-Trace)
[2024-09-22] MEDS ORDERED: Ondansetron 4 mg VIAL 2 MG/ML 2 ml VIAL IV PRN (22:33)
[2024-09-22] MEDS ORDERED: Naloxone 0.4 mg VIAL 0.4 mg/ml 1 ml VIAL IV PRN (22:33)
[2024-09-22] MEDS ORDERED: HYDROmorphone 1 MG/1 ML SYRINGE IV SLOW PU PRN (22:33)
[2024-09-22] MEDS ORDERED: Rocuronium 50 mg VIAL 10 mg/ml 5 ml VIAL (50 mg) ONE (22:42)
[2024-09-22] MEDS ORDERED: Propofol 10 MG/ML 20 ML BTL ONE (22:42)
[2024-09-22] MEDS ORDERED: Ondansetron 4 mg VIAL 2 MG/ML 2 ml VIAL ONE (22:42)
[2024-09-22] MEDS ORDERED: HYDROmorphone 0.5 MG/0.5 ML SYRINGE ONE (22:42)
[2024-09-22] MEDS ORDERED: Dexamethasone IV 4 MG/ML VIAL 1 ml VIAL ONE (22:42)
[2024-09-22] MEDS ORDERED: Succinylcholine 200 mg VIAL 20 mg/ml 10 ml VIAL (200 mg) ONE (22:42)
[2024-09-22] MEDS: Piperacillin/Tazobac 3.375 BAG 3.375 GM/100 ML BAG IV ONE (22:47)
[2024-09-22] MEDS ORDERED: Hydrocortisone INJ 100 MG/2ML 2 ML VIAL ONE (23:02)
[2024-09-23] MEDS ORDERED: HYDROmorphone 1 MG/1 ML SYRINGE ONE (02:02)
[2024-09-23] MEDS: Lactated Ringers 1000 ml BAG 1,000 ML IV SCH ×3 (03:45→12:14)
[2024-09-23] MEDS: NS 0.9% 1000 ML/HR X 1 BAG (TOTAL 1000 ML) IV ONE (04:15)
[2024-09-23] MEDS ORDERED: HYDROmorphone 0.5 MG/0.5 ML SYRINGE IV PRN ×2 (04:48→09:15)
[2024-09-23] MEDS ORDERED: Ondansetron 4 mg VIAL 2 MG/ML 2 ml VIAL IV PRN (04:49)
[2024-09-23] MEDS: LACTATED RINGERS 1000 ML BAG IV SCH (05:20)
[2024-09-23 05:33] LABS: Urine Appearance Clear; Urine Bilirubin Negative (Negative); Urine Blood 2+ (Negative); Urine Color Light-Yellow; Urine Glucose Negative (Negative); Urine Ketones Negative (Negative); Urine Nitrite Negative (Negative); Urine Protein Negative (Negative); Urine Specific Gravity 1.019 (1.002-1.030); Urine Urobilinogen Negative (Negative)
[2024-09-23 06:20] LABS: ABS Basophils 0.1 10^3/uL (0.0-0.1); ABS Lymphocytes 0.3 10^3/uL (1.0-4.8); ABS Monocytes 1.2 10^3/uL (0.0-1.1); ABS Neutrophils 19.4 10^3/uL (1.5-7.6); ABS Nucleated RBC 0.01 10^3/ul; Hematocrit 25.5 % (38-53); Hemoglobin 8.7 g/dL (13.2-16.3); Lymphocyte % 1.3 %; Mean Corpuscular Hemoglobin 36.3 pg (27-33); Mean Corpuscular Hgb Conc 34.3 g/dL (31-36); Mean Platelet Volume 7.4 fL (7.5-11.2); Platelet Count 596 10^3/uL (150-450); Red Cell Distribution Width 15.7 % (12-17)
[2024-09-23 06:31] LABS: Albumin 3.6 g/dL (3.2-5.2); Albumin/Globulin Ratio 2.3 (1-3); Calcium 8.7 mg/dL (8.6-10.3); Creatinine, Serum 1.03 mg/dL (0.67-1.17); Globulin 1.6 g/dL (2-4); Potassium 3.7 mmol/L (3.5-5.0); Total Protein 5.2 g/dL (6.4-8.9); eGFR CKD-EPI 72.5 (>60)
[2024-09-23] MEDS: Iohexol 350 (CONTRAST) 500 ML MDV IV ONE (07:08)
[2024-09-23] MEDS: Acetaminophen IV 1 GM/100ML 1,000 MG/100 ML BAG IV ONE (07:09)
[2024-09-23] MEDS: Buffered Lidocaine 1% SYRIN 1 ml INTRADERM ONE ×2 (07:09)
[2024-09-23] MEDS: Sodium Citrate/Citric Acid LIQ 15 ML UDC PO ONE (07:09)
[2024-09-23 07:49] LABS: Urine Bacteria 1+ /HPF (Absent); Urine Red Blood Cell 3+(>10/hpf) /HPF (0-Trace); Urine White Blood Cell Trace(0-5/hpf) /HPF (0-Trace)
[2024-09-23] MEDS: Acetaminophen IV 1 GM/100ML 1,000 MG/100 ML BAG IV SCH (09:39)
[2024-09-23] MEDS: Carbidopa/Levodop 25/100 MG TAB PO SCH (12:40)
[2024-09-23] MEDS ORDERED: Phenol 1.4% Throat Spray BTL MT PRN (18:10)
[2024-09-24] MEDS: Lactated Ringers 1000 ml BAG 1,000 ML IV SCH (10:42)
[2024-09-24] MEDS: Enoxaparin 40 MG/0.4 ML SYR SUBCUT SCH (10:43)
[2024-09-24] MEDS: Carbidopa/Levodop 25/100 MG TAB PO SCH (12:50)
[2024-09-25 06:26] LABS: ABS Basophils 0.1 10^3/uL (0.0-0.1); ABS Eosinophils 0.2 10^3/uL (0.0-0.5); ABS Lymphocytes 0.9 10^3/uL (1.0-4.8); ABS Monocytes 0.7 10^3/uL (0.0-1.1); ABS Neutrophils 8.9 10^3/uL (1.5-7.6); Eosinophil % 1.9 %; Hematocrit 21.7 % (38-53); Hemoglobin 7.7 g/dL (13.2-16.3); Lymphocyte % 8.4 %; Mean Corpuscular Hemoglobin 37.7 pg (27-33); Mean Corpuscular Hgb Conc 35.3 g/dL (31-36); Mean Corpuscular Volume 106.6 fL (80-97); Mean Platelet Volume 7.9 fL (7.5-11.2); Platelet Count 513 10^3/uL (150-450); Red Blood Count 2.03 10^6/uL (4.06-5.63); Red Cell Distribution Width 15.8 % (12-17); White Blood Count 10.7 10^3/uL (3.6-10.2)
[2024-09-25 06:32] LABS: Calcium 7.4 mg/dL (8.6-10.3); Creatinine, Serum 0.9 mg/dL (0.67-1.17); Potassium 3.5 mmol/L (3.5-5.0); eGFR CKD-EPI 85.3 (>60)
[2024-09-25] MEDS: Lactated Ringers 1000 ml BAG 1,000 ML IV SCH (11:11)
[2024-09-27 06:02] LABS: Hematocrit 20.6 % (38-53); Hemoglobin 7.6 g/dL (13.2-16.3); Mean Corpuscular Hgb Conc 36.8 g/dL (31-36); Mean Platelet Volume 7.3 fL (7.5-11.2); Platelet Count 494 10^3/uL (150-450); Red Blood Count 1.94 10^6/uL (4.06-5.63); Red Cell Distribution Width 15.5 % (12-17); White Blood Count 7.8 10^3/uL (3.6-10.2)
[2024-09-27 06:20] LABS: Calcium 7.5 mg/dL (8.6-10.3); Creatinine, Serum 0.84 mg/dL (0.67-1.17); Potassium 3.2 mmol/L (3.5-5.0); eGFR CKD-EPI 87.1 (>60)
[2024-09-27] MEDS ORDERED: Albuterol HFA INHALER 8 gm MDI INH PRN (11:30)
[2024-09-28] MEDS: Tiotropium Brom/Olodaterol MDI (ACUTE) INH SCH (07:47)
[2024-09-29 10:49] LABS: Hematocrit 21.9 % (38-53); Hemoglobin 7.8 g/dL (13.2-16.3)
[2024-10-02 09:12] LABS: Hematocrit 21.1 % (38-53); Hemoglobin 7.5 g/dL (13.2-16.3); Mean Corpuscular Hemoglobin 37.5 pg (27-33); Mean Corpuscular Hgb Conc 35.7 g/dL (31-36); Mean Corpuscular Volume 105.1 fL (80-97); Platelet Count 705 10^3/uL (150-450); Red Cell Distribution Width 14.9 % (12-17)
[2024-10-02 09:17] LABS: Calcium 7.6 mg/dL (8.6-10.3); Creatinine, Serum 0.79 mg/dL (0.67-1.17); Magnesium 1.9 mg/dL (1.9-2.7); Potassium 3.8 mmol/L (3.5-5.0); eGFR CKD-EPI 88.7 (>60)
[2024-10-02 11:48] VITALS: BP 120/60
[2024-10-02] MEDS: DARBEPOETIN ALFA ALBUMEN FREE SUBCUT ONE (11:48)
== END 2024-10-02 13:41 | disposition home or self-care (01) | DRG 336 ==
LOC: ED 15:37 → SSU 22:45 → EDHOLD 23:16 → AA 23:24 → SSU 09-23 04:36
PROVIDERS: ADMIT Surgery; ATTEND Surgery

== ENCOUNTER 2024-10-04 20:46 | Inpatient (IN) ==
[2024-10-04 21:28] LABS: ABS Basophils 0.1 10^3/uL (0.0-0.1); ABS Eosinophils 0.1 10^3/uL (0.0-0.5); ABS Lymphocytes 0.5 10^3/uL (1.0-4.8); ABS Monocytes 1.3 10^3/uL (0.0-1.1); ABS Neutrophils 12.4 10^3/uL (1.5-7.6); ABS Nucleated RBC 0.01 10^3/ul; Eosinophil % 0.3 %; Hematocrit 19.6 % (38-53); Hemoglobin 6.8 g/dL (13.2-16.3); Lymphocyte % 3.7 %; Mean Corpuscular Hemoglobin 36.4 pg (27-33); Mean Corpuscular Hgb Conc 34.7 g/dL (31-36); Mean Platelet Volume 7.2 fL (7.5-11.2); Nucleated Red Blood Cells % 0.1 %/100WBC (0.0-0.8); Platelet Count 752 10^3/uL (150-450); Red Blood Count 1.86 10^6/uL (4.06-5.63); Red Cell Distribution Width 14.8 % (12-17); White Blood Count 14.4 10^3/uL (3.6-10.2)
[2024-10-04 22:02] LABS: Albumin 3.1 g/dL (3.5-5.7); Albumin/Globulin Ratio 1.5 (1-3); Calcium 7.9 mg/dL (8.6-10.3); Creatinine, Serum 1.11 mg/dL (0.67-1.17); Globulin 2.1 g/dL (2-4); Potassium 3.6 mmol/L (3.5-5.0); Total Bilirubin 0.6 mg/dL (0.2-1.0); Total Protein 5.2 g/dL (6.4-8.9); eGFR CKD-EPI 66.3 (>60)
[2024-10-04 22:49] LABS: High Sensitivity Troponin 1 Hr 13 pg/mL (<20)
[2024-10-04] MEDS: Iodixanol 320 (CONTRAST) 100 ML SDV IV ONE (23:36)
[2024-10-05] MEDS: Cefepime 2 GM in Dextrose 2 GM/50 ML BAG IV ONE (01:43)
[2024-10-05] MEDS: Azithromycin 500 mg/250 ml NS 500 MG/250 ML BAG IVPB ONE (02:27)
[2024-10-05] MEDS ORDERED: Polyethylene Glycol 3350 17 GM PACKET PO PRN (03:27)
[2024-10-05] MEDS ORDERED: Ondansetron 4 mg VIAL 2 MG/ML 2 ml VIAL IV PRN (03:27)
[2024-10-05] MEDS ORDERED: Senna TAB 8.6 mg TAB PO PRN (03:27)
[2024-10-05] MEDS: Enoxaparin 40 MG/0.4 ML SYR SUBCUT SCH (06:25)
[2024-10-05 09:43] LABS: Hematocrit 23.8 % (38-53); Hemoglobin 8.1 g/dL (13.2-16.3); Mean Corpuscular Hemoglobin 34.7 pg (27-33); Mean Corpuscular Hgb Conc 33.9 g/dL (31-36); Mean Corpuscular Volume 102.4 fL (80-97); Mean Platelet Volume 6.8 fL (7.5-11.2); Platelet Count 783 10^3/uL (150-450); Red Blood Count 2.32 10^6/uL (4.06-5.63); Red Cell Distribution Width 19.3 % (12-17); White Blood Count 11.6 10^3/uL (3.6-10.2)
[2024-10-05 10:13] LABS: Creatinine, Serum 1.06 mg/dL (0.67-1.17); Potassium 3.5 mmol/L (3.5-5.0); eGFR CKD-EPI 70.1 (>60)
[2024-10-05 10:47] LABS: ABS Basophils 0.1 10^3/uL (0.0-0.1); ABS Eosinophils 0.1 10^3/uL (0.0-0.5); ABS Lymphocytes 0.9 10^3/uL (1.0-4.8); ABS Monocytes 1.1 10^3/uL (0.0-1.1); ABS Neutrophils 9.3 10^3/uL (1.5-7.6); ABS Nucleated RBC 0.01 10^3/ul; Eosinophil % 1.2 %; Lymphocyte % 7.8 %
[2024-10-05 10:48] LABS: Anisocytosis 1+; Macrocytosis 1+
[2024-10-05] MEDS: Carbidopa/Levodop 25/100 MG TAB PO SCH (12:12)
[2024-10-05] MEDS: Cefepime 2 GM in Dextrose 2 GM/50 ML BAG IV SCH (13:40)
[2024-10-05] MEDS: Tiotropium Brom/Olodaterol MDI (ACUTE) INH SCH (18:45)
[2024-10-06] MEDS: Azithromycin 500 mg/250 ml NS 500 MG/250 ML BAG IVPB SCH (01:46)
[2024-10-06 05:48] LABS: ABS Basophils 0.1 10^3/uL (0.0-0.1); ABS Eosinophils 0.2 10^3/uL (0.0-0.5); ABS Monocytes 1.1 10^3/uL (0.0-1.1); ABS Neutrophils 6.2 10^3/uL (1.5-7.6); Eosinophil % 2.2 %; Hematocrit 21.1 % (38-53); Hemoglobin 7.4 g/dL (13.2-16.3); Lymphocyte % 11.6 %; Mean Corpuscular Hemoglobin 35.7 pg (27-33); Mean Corpuscular Hgb Conc 35.3 g/dL (31-36); Mean Platelet Volume 6.9 fL (7.5-11.2); Platelet Count 650 10^3/uL (150-450); Red Blood Count 2.09 10^6/uL (4.06-5.63); Red Cell Distribution Width 18.9 % (12-17); White Blood Count 8.5 10^3/uL (3.6-10.2)
[2024-10-06 06:08] LABS: Calcium 7.2 mg/dL (8.6-10.3); Creatinine, Serum 0.76 mg/dL (0.67-1.17); Potassium 3.4 mmol/L (3.5-5.0); eGFR CKD-EPI 89.7 (>60)
[2024-10-06] MEDS: Potassium Chloride LIQUID 20 MEQ/15 ML LIQUID PO ONE (09:53)
[2024-10-06 10:07] LABS: Magnesium 1.9 mg/dL (1.9-2.7)
[2024-10-07] MEDS: Albuterol HFA INHALER 8 gm MDI INH PRN (02:26)
[2024-10-07 06:55] LABS: ABS Basophils 0.1 10^3/uL (0.0-0.1); ABS Eosinophils 0.2 10^3/uL (0.0-0.5); ABS Lymphocytes 1.1 10^3/uL (1.0-4.8); ABS Monocytes 0.8 10^3/uL (0.0-1.1); ABS Neutrophils 5.6 10^3/uL (1.5-7.6); Eosinophil % 2.1 %; Hematocrit 21.3 % (38-53); Hemoglobin 7.5 g/dL (13.2-16.3); Mean Corpuscular Hemoglobin 36.2 pg (27-33); Mean Corpuscular Hgb Conc 35.5 g/dL (31-36); Mean Corpuscular Volume 102.1 fL (80-97); Mean Platelet Volume 7.5 fL (7.5-11.2); Platelet Count 664 10^3/uL (150-450); Red Blood Count 2.08 10^6/uL (4.06-5.63); Red Cell Distribution Width 18.9 % (12-17); White Blood Count 7.8 10^3/uL (3.6-10.2)
[2024-10-07 07:08] LABS: Calcium 7.5 mg/dL (8.6-10.3); Creatinine, Serum 0.74 mg/dL (0.67-1.17); Magnesium 1.9 mg/dL (1.9-2.7); Potassium 3.8 mmol/L (3.5-5.0); eGFR CKD-EPI 90.5 (>60)
[2024-10-07] MEDS: Potassium Chlor 20 meq TAB.ER PO ONE (12:35)
[2024-10-09 06:21] LABS: ABS Basophils 0.1 10^3/uL (0.0-0.1); ABS Eosinophils 0.2 10^3/uL (0.0-0.5); ABS Lymphocytes 0.9 10^3/uL (1.0-4.8); ABS Monocytes 0.7 10^3/uL (0.0-1.1); Eosinophil % 2.3 %; Hematocrit 20.7 % (38-53); Hemoglobin 7.1 g/dL (13.2-16.3); Lymphocyte % 13.4 %; Mean Corpuscular Hgb Conc 34.4 g/dL (31-36); Mean Platelet Volume 7.1 fL (7.5-11.2); Platelet Count 605 10^3/uL (150-450); Red Blood Count 2.03 10^6/uL (4.06-5.63); Red Cell Distribution Width 17.7 % (12-17); White Blood Count 6.9 10^3/uL (3.6-10.2)
[2024-10-10 07:41] LABS: ABS Basophils 0.2 10^3/uL (0.0-0.1); ABS Eosinophils 0.2 10^3/uL (0.0-0.5); ABS Lymphocytes 0.8 10^3/uL (1.0-4.8); ABS Monocytes 0.9 10^3/uL (0.0-1.1); ABS Neutrophils 7.2 10^3/uL (1.5-7.6); Eosinophil % 2.5 %; Hemoglobin 8.4 g/dL (13.2-16.3); Lymphocyte % 9.1 %; Mean Corpuscular Hemoglobin 35.5 pg (27-33); Mean Corpuscular Volume 101.4 fL (80-97); Mean Platelet Volume 7.3 fL (7.5-11.2); Platelet Count 629 10^3/uL (150-450); Red Blood Count 2.37 10^6/uL (4.06-5.63); Red Cell Distribution Width 18.8 % (12-17); White Blood Count 9.4 10^3/uL (3.6-10.2)
[2024-10-11] MEDS: Amoxicillin/Clavul 875/125 TAB (Augmentin 875 tab) PO SCH (11:39)
[2024-10-12 09:54] VITALS: BP 117/53
== END 2024-10-12 13:50 | DRG 178 ==
LOC: ED 20:46 → EDHOLD 20:46 → SUATTDRO 10-05 03:27 → OBSVTOIN 10-05 03:27 → MED 10-05 16:52
PROVIDERS: ADMIT Nurse Practitioner; ATTEND Student in an Organized Health Care Education/Training Program